=== PATIENT | male | born 1950 | race Caucasian/White ===

== ENCOUNTER 2016-07-10 14:20 | Emergency (ER) ==
[2016-07-10 14:27] VITALS: BP 169/77; TEMP 99.2; BMI 24.3
--- NOTE | 2016-07-10 15:24 | CT ---
EXAM: CT soft tissue neck without contrast HISTORY: Swallowed popcicle stick. COMPARISON: None TECHNIQUE: Serial axial images of the soft tissues of the neck were performed without contrast. Th yesika were reviewed in multiple planes. FINDINGS: Intracranial contents demonstrate a moderate generalized volume loss. Paranasal sinuses a re clear. The mastoid air cells are clear. The thyroid is normal. The orbital globes and retrobulb ar structures are normal. There are scattered abnormal lymph nodes. The thyroid is normal. The as cending aorta measures upper limit of normal at 4 cm in diameter. There is apical emphysematous dis ease of the lungs. There is a round tubular structure in the posterior esophagus measuring approximately 6 cm in length . At the distal aspect of this tubular structure, there is a increased density around structure melyssa suring 1.3 cm in diameter. IMPRESSION: 1. Tubular structure with a distal lobular area of increased attenuation in the esophagus in the re gion of the aortic arch likely represents ingested foreign body. 2. Ascending aorta is mildly enlarged with emphysematous disease. 3. Moderate generalized volume loss of the intracranial contents.
--- NOTE | 2016-07-10 16:05 | ED.PDOC ---
General ED Provider: Dr. CAT WILDER Chief Complaint: Non-specific Complaint Stated Complaint: f/b ingestion Time Seen by Physician: 14:23 Mode of Arrival: Ambulance Information Source: Patient Exam Limitations: No limitations Primary Care Provider: MARIBELL ARRIAGA Nursing and Triage Documentation Reviewed and Agree: Yes GI Complaint Exam - Vomiting/Diarrhea Complaint/Exam Onset/Duration: f/b in the forearm of a popcile stick Symptoms Are: Still present Episodes of Vomiting over last 24 Hours: 0 Initial Severity: Mild Current Severity: Mild Aggravating: Reports: None Alleviating: Reports: None Associated Signs and Symptoms: Denies: Dizziness, Light-headedness, Melena, Hematemesis, Fever, Abdominal pain, Cramping Review of Systems - Review Of Systems Constitutional: Reports: No symptoms Eyes: Reports: No symptoms Ears, Nose, Mouth, Throat: Reports: No symptoms Respiratory: Reports: No symptoms Cardiac: Reports: No symptoms GI: Reports: No symptoms : Reports: No symptoms Musculoskeletal: Reports: No symptoms Skin: Reports: No symptoms Neurological: Reports: No symptoms Endocrine: Reports: No symptoms Hematologic/Lymphatic: Reports: No symptoms All Other Systems: Reviewed and Negative Past Medical History - Past Medical History Previously Healthy: Yes Endocrine: Reports: None Cardiovascular: Reports: None Respiratory: Reports: None Hematological: Reports: None Gastrointestinal: Reports: None Genitourinary: Reports: None Neuro/Psych: Reports: None Musculoskeletal: Reports: None Cancer: Reports: None - Surgical History General Surgical History: Reports: None - Family History Family History: Reports: None - Social History Smoking Status: Current every day smoker Hx Substance Use: No Alcohol Screening: None Physical Exam - Physical Exam Appearance: Well-appearing, No pain distress, Well-nourished Eyes: NOAM, EOMI, Conjunctiva clear ENT: Ears normal, Nose normal, Oropharynx normal Respiratory: Airway patent, Breath sounds clear, Breath sounds equal, Respirations nonlabored Cardiovascular: RRR, Pulses normal, No rub, No murmur GI/: Soft, Nontender, No masses, Bowel sounds normal, No Organomegaly Musculoskeletal: Normal strength, ROM intact, No edema, No calf tenderness Skin: Warm, Dry, Normal color Neurological: Sensation intact, Motor intact, Reflexes intact, Cranial nerves intact, Alert, Oriented Psychiatric: Affect appropriate, Mood appropriate Critical Care Note - Critical Care Note Total Time (mins): 0 Course - Course Orders, Labs, Meds: Orders Category Date Time Status CT SOFT TISSUE NECK W/O CONTR Stat RADS 07/10/16 14:44 Ordered Vital Signs: Temp Pulse Resp BP Pulse Ox 07/10/16 14:21 99.2 F 51 L 16 169/77 H 98 Departure - Departure Time of Disposition: 16:04 (transfered jewish) Disposition: TSF SHORT-TRM HOSP Discharge Problem: Foreign body in esophagus Qualifiers: Encounter type: initial encounter Qualifier Code: (T18.108A) Unspecified foreign body in esophagus causing other injury, initial encounter Instructions: Foreign Body Ingestion (ED) Condition: Good Pt referred to PMD for follow-up: Yes Additional Instructions: Please call your Family Physician as soon as possible to schedule a follow-up appointment.
== END 2016-07-10 16:30 | disposition short-term general hospital (02) ==
LOC: ED 14:20
DX: T18.108A Unspecified foreign body in esophagus causing other injury, initial encounter (principal); F17.210 Nicotine dependence, cigarettes, uncomplicated
CPT/HCPCS: 99285

== ENCOUNTER 2016-10-08 09:53 | Outpatient (CLI) | END 2016-10-08 09:54 | LOC: AMBL 09:53 | PROVIDERS: ATTEND Emergency Medicine | DX: R00.1 Bradycardia, unspecified (principal); R55 Syncope and collapse; G80.9 Cerebral palsy, unspecified; F03.90 Unspecified dementia, unspecified severity, without behavioral disturbance, psychotic disturbance, mood disturbance, and anxiety ==

== ENCOUNTER 2017-05-13 15:18 | Outpatient (CLI) | END 2017-05-13 15:19 | disposition short-term general hospital (02) | LOC: AMBL 15:18 | PROVIDERS: ATTEND Internal Medicine | DX: R31.9 Hematuria, unspecified (principal); I95.9 Hypotension, unspecified; Z86.73 Personal history of transient ischemic attack (TIA), and cerebral infarction without residual deficits ==

== ENCOUNTER 2017-06-14 16:40 | Outpatient (CLI) | payer OTHER | END 2017-06-14 16:41 | disposition short-term general hospital (02) | LOC: AMBL 16:40 | PROVIDERS: ATTEND Emergency Medicine | DX: N48.89 Other specified disorders of penis (principal) ==

== ENCOUNTER 2017-06-18 21:40 | Outpatient (CLI) | END 2017-06-18 21:41 | disposition short-term general hospital (02) | LOC: AMBL 21:40 | PROVIDERS: ATTEND Internal Medicine Geriatric Medicine | DX: R50.9 Fever, unspecified (principal); R31.9 Hematuria, unspecified; R40.2411 Glasgow coma scale score 13-15, in the field [EMT or ambulance]; G80.9 Cerebral palsy, unspecified; M62.462 Contracture of muscle, left lower leg; M62.461 Contracture of muscle, right lower leg; Z98.890 Other specified postprocedural states; Z96.0 Presence of urogenital implants ==

== ENCOUNTER 2017-06-24 11:39 | Outpatient (CLI) | END 2017-06-24 11:40 | disposition short-term general hospital (02) | LOC: AMBL 11:39 | PROVIDERS: ATTEND Family Medicine | DX: R00.1 Bradycardia, unspecified (principal) ==

== ENCOUNTER 2017-07-15 12:45 | Outpatient (CLI) | END 2017-07-15 13:01 | disposition short-term general hospital (02) | LOC: AMBL 12:45 | PROVIDERS: ATTEND Family Medicine | DX: R40.4 Transient alteration of awareness (principal); R31.9 Hematuria, unspecified; Z96.0 Presence of urogenital implants; G80.9 Cerebral palsy, unspecified; F03.90 Unspecified dementia, unspecified severity, without behavioral disturbance, psychotic disturbance, mood disturbance, and anxiety ==

== ENCOUNTER 2017-10-15 12:51 | Inpatient (IN) | payer OTHER ==
--- NOTE | 2017-10-15 13:31 | ED.PDOC ---
General ED Provider: Dr. BRITNI ROSE Chief Complaint: Altered Mental Status Stated Complaint: Patient arrives to hospital by ambulance after [place] reported patient had a near syncopal episode at lunch. The RN there stated his Blood Pressure there of 74/42 and blood glucose of 438. Reportably no history of diabetes. EMS reports that his BP upon there arrival was 140/82. Patient has slightly altered mental status, compared to baseline.Patient also has a kc cath in place, with a history of UTI's and cloudy urine present in bag. Time Seen by Physician: 13:25 Mode of Arrival: Ambulance Information Source: Snf, EMT Exam Limitations: Clinical condition, Altered mental status Primary Care Provider: RADHA LICEA Referred to ED by: PCP Nursing and Triage Documentation Reviewed and Agree: Yes Does patient meet sepsis criteria?: No System Inflammatory Response Syndrome: Not Applicable Sepsis Protocol: For patient's 13 years and over: Temp is 96.8 and below OR 101 and greater Pulse >90 BPM Resp >20/minute Acutely Altered Mental Status Are patient's symptoms suggestive of a new infection, such as: -Pneumonia -Skin, Soft Tissue -Endocarditis -UTI -Bone, Joint Infection -Implantable Device -Acute Abdominal Infection -Wound Infection -Meningitis -Blood Stream Catheter Infection -Unknown Neurological Complaint Exam - Altered Mental Status Complaint/Exam Current Mental Status: Confusion, Other (less responsiveness and garbled speech) Onset: Gradual Duration: Today Symptoms Are: Still present Timing: Intermittent Episodes Lasting: Minutes Initial Severity: Severe Current Severity: Mild Eye Deviation Present: No Character: Reports: Responsiveness. Denies: Confusion, Agitation, Lethargy Aggravating: Reports: None Alleviating: Reports: Oxygen (and IV fluids) Associated Signs and Symptoms: Reports: Dizziness, Weakness Related History: Denies: Similar episode Cardiac Risk Factors: Reports: None, Hypertension CVA Risk Factors: Reports: None, Hypertension, CAD Carotid Bruit Present: No Nystagmus Present: No Gag Reflex Present: Yes Meningeal Signs Positive: No Focal Weakness: Present: None Focal Sensory Loss: Present: None Gait: Unable Signs of Injury: Present: Normal findings Thrombolytics Considered: No Differential Diagnoses: Metabolic Disorder, TIA Review of Systems - Review Of Systems Constitutional: Reports: No symptoms Eyes: Reports: No symptoms Ears, Nose, Mouth, Throat: Reports: No symptoms Respiratory: Reports: No symptoms Cardiac: Reports: No symptoms GI: Reports: No symptoms : Reports: No symptoms Musculoskeletal: Reports: No symptoms Skin: Reports: No symptoms Neurological: Reports: No symptoms Endocrine: Reports: No symptoms Hematologic/Lymphatic: Reports: No symptoms All Other Systems: Reviewed and Negative Past Medical History - Past Medical History Previously Healthy: Yes Endocrine: Reports: None Cardiovascular: Reports: None Respiratory: Reports: None Hematological: Reports: None Gastrointestinal: Reports: None Genitourinary: Reports: None Neuro/Psych: Reports: None Musculoskeletal: Reports: None Cancer: Reports: None - Surgical History General Surgical History: Reports: None - Family History Family History: Reports: None - Social History Smoking Status: Current every day smoker, Heavy tobacco smoker Hx Substance Use: No Alcohol Screening: None - Immunizations Tetanus Shot up to Date: Yes Physical Exam - Physical Exam Appearance: Ill-appearing, No pain distress, Well-nourished Ill-appearing: Mild Pain Distress: None Eyes: NOAM, EOMI, Conjunctiva clear ENT: Ears normal, Nose normal, Oropharynx normal, Dry mucosa Respiratory: Airway patent, Breath sounds clear, Breath sounds equal, Respirations nonlabored Cardiovascular: RRR, Pulses normal, No rub, No murmur GI/: Soft, Nontender, No masses, Bowel sounds normal, No Organomegaly Musculoskeletal: Normal strength, ROM intact, No edema, No calf tenderness Skin: Warm, Dry, Normal color Neurological: Sensation intact, Motor intact, Reflexes intact, Cranial nerves intact, Alert (After IV fluid bolus patient became talkative and denied complaints other that against the long-term-), Oriented Psychiatric: Affect appropriate, Mood appropriate Course - Course Hematology/Chemistry: 10/16/17 04:30 10/16/17 04:30 Orders, Labs, Meds: Lab Review 10/15/17 10/15/17 10/15/17 13:33 14:00 14:00 WBC 11.07 H RBC 4.35 L Hgb 12.8 L Hct 39.7 L MCV 91.3 MCH 29.4 MCHC 32.2 RDW Coeff of Carlita 15.1 H Plt Count 102 L Immature Gran % (Auto) 0.5 Neut % (Auto) 81.9 Lymph % (Auto) 8.2 L [place] % (Auto) 8.3 Eos % (Auto) 0.7 Baso % (Auto) 0.4 Immature Gran # (Auto) 0.1 Neut # (Auto) 9.1 H Lymph # (Auto) 0.9 [place] # (Auto) 0.9 Eos # (Auto) 0.1 Baso # (Auto) 0.0 ESR 18 H Sodium 144 Potassium 3.9 Chloride 112 H Carbon Dioxide 23 Anion Gap 12.9 BUN 23 H Creatinine 1.15 H Estimated GFR (MDRD) 63.00 BUN/Creatinine Ratio 20.00 Glucose 124 H Hemoglobin A1c Calcium 8.5 Total Bilirubin 1.4 H AST 29 ALT 34 Alkaline Phosphatase 72 Troponin I 0.0130 Total Protein 6.2 Albumin 2.7 L Globulin 3.5 Albumin/Globulin Ratio 0.77 Urine Color Yellow Urine Clarity Cloudy Urine pH 6.0 Ur Specific [place] 1.015 Urine Protein 2+ Urine Glucose (UA) Negative Urine Ketones Negative Urine Blood 2+ Urine Nitrite Positive Urine Bilirubin Negative Urine Urobilinogen 1.0 Ur Leukocyte Esterase 3+ Urine Microscopic RBC Tntc Urine Microscopic WBC Tntc Ur Squamous Epith Cells Not present Urine Bacteria 2+ 10/15/17 14:00 WBC RBC Hgb Hct MCV MCH MCHC RDW Coeff of Carlita Plt Count Immature Gran % (Auto) Neut % (Auto) Lymph % (Auto) [place] % (Auto) Eos % (Auto) Baso % (Auto) Immature Gran # (Auto) Neut # (Auto) Lymph # (Auto) [place] # (Auto) Eos # (Auto) Baso # (Auto) ESR Sodium Potassium Chloride Carbon Dioxide Anion Gap BUN Creatinine Estimated GFR (MDRD) BUN/Creatinine Ratio Glucose Hemoglobin A1c 4.6 L Calcium Total Bilirubin AST ALT Alkaline Phosphatase Troponin I Total Protein Albumin Globulin Albumin/Globulin Ratio Urine Color Urine Clarity Urine pH Ur Specific [place] Urine Protein Urine Glucose (UA) Urine Ketones Urine Blood Urine Nitrite Urine Bilirubin Urine Urobilinogen Ur Leukocyte Esterase Urine Microscopic RBC Urine Microscopic WBC Ur Squamous Epith Cells Urine Bacteria Orders Category Date Time Status EKG-(ED ONLY) Stat CARDIO 10/15/17 13:39 Completed IV [ED IV/MEDIPORT/POWERPORT] .ONCE EMERGENCY 10/15/17 13:39 Active BLOOD CULTURE (ED ONLY) Stat LAB 10/15/17 14:00 Received CBC W/ AUTO DIFF Stat LAB 10/15/17 14:00 Completed CMP [COMPREHENSIVE METABOLIC PANEL] Stat LAB 10/15/17 14:00 Completed ESR Stat LAB 10/15/17 14:00 Completed TROPONIN I Stat LAB 10/15/17 14:00 Completed UA [URINALYSIS C & S IF INDICATED] Stat LAB 10/15/17 13:33 Completed URINE CULTURE Stat LAB 10/15/17 13:33 Results 0.9 % Sodium Chloride [Saline Flush] MEDS 10/15/17 13:38 Active 1 syr IVF PRN PRN Sodium Chloride 0.9% [Sodium Chloride] 1,000 ml MEDS 10/15/17 13:40 Discontinued IV BOLUS Sodium Chloride 0.9% [Sodium Chloride] 1,000 ml MEDS 10/15/17 13:40 Discontinued IV BOLUS CHEST, 1V AP ONLY Stat RADS 10/15/17 13:39 Completed Medications Generic Name Dose Route Start Last Admin Trade Name Freq PRN Reason Stop Dose Admin Acetaminophen 650 mg 10/15/17 19:32 Tylenol PO Q4H PRN Mild Pain Amiodarone HCl 200 mg 10/15/17 21:00 10/16/17 09:24 Cordarone PO 200 mg BID KWESI Administration Ascorbic Acid 500 mg 10/16/17 09:00 10/16/17 09:24 Vitamin C PO 500 mg BID KWESI Administration Gabapentin 300 mg 10/15/17 21:00 10/15/17 21:03 Neurontin PO 300 mg BEDTIME KWESI Administration Sodium Chloride 1,000 mls @ 75 mls/hr 10/15/17 20:00 10/16/17 01:34 Sodium Chloride IV 75 mls/hr .[id number] KWESI Administration Piperacillin Sod/Tazobactam 50 mls @ 50 mls/hr 10/16/17 08:30 10/16/17 09:24 Sod 3.375 gm/ Sodium Chloride IV 50 mls/hr Q6HR KWESI Administration Multivitamins 1 tab 10/16/17 09:00 10/16/17 09:23 Multivitamin Tablet PO 1 tab DAILY KWESI Administration Nitroglycerin 0.4 mg 10/15/17 19:29 Nitrostat SL Q5MIN X 3 DOSES PRN Chest Pain Non-Formulary Medication 1 each 10/16/17 09:00 10/16/17 09:25 Arginine/Ascorbate Sod/Christa Ac [Arginaid Powder] PO Not Given BID KWESI Potassium Chloride 10 meq 10/16/17 08:00 10/16/17 09:23 Micro-K Cap PO 10 meq BIDWM KWESI Administration Rivaroxaban 20 mg 10/16/17 09:00 10/16/17 09:25 Xarelto PO 20 mg DAILY KWESI Administration Saccharomyces Boulardii 250 mg 10/15/17 21:00 10/16/17 09:24 Florastor PO 250 mg BID KWESI Administration Sennosides 8.6 mg 10/15/17 21:00 10/16/17 09:23 Senna PO 8.6 mg BID KWESI Administration Sodium Chloride 1 syr 10/15/17 13:38 Saline Flush IVF PRN PRN To flush IV Discontinued Medications Generic Name Dose Route Start Last Admin Trade Name Freq PRN Reason Stop Dose Admin Sodium Chloride 1,000 mls @ 1,000 mls/hr 10/15/17 13:40 10/15/17 13:49 Sodium Chloride IV 10/15/17 14:39 1,000 mls/hr BOLUS STA Administration Sodium Chloride 1,000 mls @ 150 mls/hr 10/15/17 13:40 10/15/17 13:49 Sodium Chloride IV 10/15/17 20:19 150 mls/hr BOLUS STA Administration Levofloxacin/Dextrose 500 mg/ 100 mls @ 100 mls/hr 10/15/17 16:00 10/15/17 16 :01 Dextrose IV 100 mls/hr DAILY KWESI Administration Non-Formulary Medication 1 each 10/15/17 21:00 10/15/17 21:02 Arginine/Ascorbate Sod/Christa Ac [Arginaid Powder] PO Not Given BID [facility] Non-Formulary Medication 500 mg 10/15/17 21:00 10/15/17 21:03 Ascorbate Calcium [Vitamin C] PO Not Given BID [facility] Vital Signs: Temp Pulse Resp BP Pulse Ox 10/15/17 12:52 98.4 F 53 L 13 116/68 96 Departure - Departure Time of Disposition: 15:30 Disposition: ADMITTED INPATIENT Discharge Problem: Acute UTI, Dehydration, moderate Condition: Fair Pt referred to PMD for follow-up: Yes (Dr Zimmerman) MP verified?: No Allergies/Adverse Reactions: Allergies No Known Allergies Allergy (Unverified 10/15/17 13:02) Home Medications: Ambulatory Orders Acetaminophen [Pain & Fever] 650 mg PO Q4HR PRN 10/15/17 Albuterol Sulfate [Proventil Hfa] 6.7 gm IH Q6HR PRN 10/15/17 Amiodarone HCl [Pacerone] 200 mg PO BID 10/15/17 Arginine/Ascorbate Sod/Christa AC [Arginaid Powder] 1 each PO BID 10/15/17 Ascorbate Calcium [Vitamin C] 500 mg PO BID 10/15/17 Benzonatate [Tessalon Perles] 200 mg PO Q8HR PRN 10/15/17 Gabapentin [Neurontin] 300 mg PO BEDTIME 10/15/17 Ipratropium/Albuterol Neb [Duoneb] 1 vial NEB RTQ6H PRN 10/15/17 Lisinopril [Zestril] 5 mg PO BID 10/15/17 Loperamide HCl [Imodium A-D] 2 mg PO Q4HR PRN 10/15/17 Multivitamin 1 cap PO DAILY 10/15/17 Nitroglycerin [Nitrostat] 0.4 mg SL Q5MIN X 3 DOSES PRN 10/15/17 Ondansetron HCl [Zofran] 4 mg PO Q8HR PRN 10/15/17 Potassium Chloride 10 meq PO BIDWM 10/15/17 Rivaroxaban [Xarelto] 20 mg PO DAILY 10/15/17 Saccharomyces Boulardii [Florastor] 250 mg PO BID 10/15/17 Sennosides [Senna] 8.6 mg PO BID 10/15/17 Terazosin HCl 5 mg PO DAILY 10/15/17 Disposition Discussed With: Patient
[2017-10-15] MEDS ORDERED: SODIUM CHLORIDE 1,000 ML IV STA ×2 (13:40)
--- NOTE | 2017-10-15 14:32 | DI ---
EXAM: Single frontal view of the chest HISTORY: Cough. COMPARISON: none FINDINGS: Cardiomediastinal silhouette is unremarkable. There is no pneumothorax or pleural effusion . There is no consolidation, nodule or mass. The osseous structures are unremarkable. IMPRESSION: No acute cardiopulmonary process.
[2017-10-15] MEDS ORDERED: LEVAQUIN 500 MG in PREMIX 100 ML D5W 1 BAG IV SCH (16:00)
[2017-10-15] MEDS ORDERED: LEVAQUIN 100 ML IV ONE (16:21)
[2017-10-15 17:05] VITALS: BMI 20.9
[2017-10-15] MEDS ORDERED: NITROSTAT SL PRN (19:29)
[2017-10-15] MEDS ORDERED: TYLENOL PO PRN (19:32)
[2017-10-15] MEDS ORDERED: VITAMIN C ONE (20:04)
[2017-10-15] MEDS ORDERED: ARGININE PO SCH (21:00)
[2017-10-15] MEDS ORDERED: ASCORBATE SOD PO SCH (21:00)
[2017-10-15] MEDS ORDERED: VITE AC PO SCH (21:00)
[2017-10-15] MEDS ORDERED: NON-FORMULARY MEDICATION (Ascorbate Calcium [Vitamin C] 500 MG) PO SCH (21:00)
[2017-10-15] MEDS: CORDARONE PO SCH (21:02)
[2017-10-15] MEDS: SENNA PO SCH (21:03)
[2017-10-15] MEDS: NEURONTIN PO SCH (21:03)
[2017-10-15] MEDS: FLORASTOR PO SCH (21:04)
[2017-10-15] MEDS: SODIUM CHLORIDE 1,000 ML IV SCH (21:21)
--- NOTE | 2017-10-15 21:29 | CT ---
EXAM: CT brain without contrast HISTORY: Altered mental status TECHNIQUE: CT of the brain without intravenous contrast FINDINGS: There is no acute hemorrhage midline shift or mass effect. No hydrocephalus or abnormal e xtra-axial fluid collection. Generalized involutional atrophy, severe. Chronic microvascular change s of the white matter tracts, mild. No acute large vessel territorial infarct is seen. The bony aircraft maintenance director nium appears normal. The visualized paranasal sinuses are clear. Soft tissues without significant abn ormality. IMPRESSION: 1. Chronic changes as described. No acute intracranial abnormality is seen.
--- NOTE | 2017-10-15 21:37 | CT ---
Exam: CT of the abdomen and pelvis without contrast History: Lower abdomen pain Technique: [address] of the abdomen and pelvis without intravascular contrast FINDINGS: The lung bases are clear. No significant liver abnormality. The adrenals, pancreas and sp edelmira are unremarkable. The stomach and hiatus are unremarkable.Nonvisualization of the gallbladder. Bilateral nonobstructing nephrolithiasis. Large calculus on the right measures 8 mm. Left hydroneph rosis and hydroureter with periureteral stranding. There are calcifications in the urinary bladder a s well as urinary bladder wall thickening and perivesicular stranding. No ureterolithiasis is seen. The appendix is normal. Mild gas and fluid and the small intestine and colon without obstructive pa ttern. Large stool retention of the rectum and sigmoid. Nondistended urinary bladder with possible perivesi cular stranding and urinary bladder wall thickening. Calcifications within the bladder lumen or blad arpita wall. Skeletal hyperdensities noted within the pelvis. Chronic wedge deformity. Impression: 1. Mild left hydronephrosis and hydroureter. No ureterolithiasis is seen. Correlate for passed chay culus versus other etiology of obstruction. Multiple bladder calculi are present. 2. Large rectal and sigmoid colonic stool retention. Correlate for fecal impaction. 3. Right osteo sclerotic area may represent metastasis. 4. Bilateral nonobstructing nephrolithiasis
[2017-10-16] MEDS: SODIUM CHLORIDE 1,000 ML IV SCH ×2 (01:34→15:24)
[2017-10-16] MEDS ORDERED: NON-FORMULARY MEDICATION (Potassium Chloride [Potassium Chloride] 10 MEQ) PO SCH (08:00)
[2017-10-16] MEDS ORDERED: NON-FORMULARY MEDICATION (Rivaroxaban [Xarelto] 20 MG) PO SCH (09:00)
[2017-10-16] MEDS ORDERED: NON-FORMULARY MEDICATION (Multivitamin 1 CAP) PO SCH (09:00)
[2017-10-16] MEDS: MICRO-K CAP PO SCH ×2 (09:23→17:28)
[2017-10-16] MEDS: SENNA PO SCH ×2 (09:23→20:22)
[2017-10-16] MEDS: MULTIVITAMIN TABLET PO SCH (09:23)
[2017-10-16] MEDS: FLORASTOR PO SCH ×2 (09:24→20:22)
[2017-10-16] MEDS: ZOSYN 3.375 GM 3.375 GM in SODIUM CHLORIDE 50 ML IV SCH ×4 (09:24→23:12)
[2017-10-16] MEDS: VITAMIN C PO SCH ×2 (09:24→20:22)
[2017-10-16] MEDS: CORDARONE PO SCH ×2 (09:24→20:22)
[2017-10-16] MEDS: VITE AC PO SCH ×2 (09:25→20:21)
[2017-10-16] MEDS: ARGININE PO SCH ×2 (09:25→20:21)
[2017-10-16] MEDS: XARELTO PO SCH (09:25)
[2017-10-16] MEDS: ASCORBATE SOD PO SCH ×2 (09:25→20:21)
--- NOTE | 2017-10-16 10:43 | HP ---
DATE OF SERVICE: 10/15/17 CHIEF COMPLAINT: Hypotension and altered mental status. HISTORY OF PRESENT ILLNESS: This is a 67 year old male, senior care resident. The patient had a near syncopal episode with the last stated pressure of 74. Blood sugar was 438, no history of diabetes. Pressure upon EMS 145/82. Altered mental status compared to recent. He has Barnes Catheter. History of UTI and cloudy urine present. History of cerebral palsy, wheelchair bound came to the emergency room and seen by Dr. Myrick. WBC was 11,000 with left shift, BUN 23, creatinine 1.15. Urine is cloudy with 3+ Leukocyte esterase, nitrates positive, 2+ blood, bacteria 2+. At that time the patient was admitted to the hospital for the acute renal failure, change in mental status from urinary tract infection for IV fluids and antibiotics. REVIEW OF SYSTEMS: CONSTITUTIONAL: No fever, no chills. Weakness. Tiredness. Low blood pressure, Elevated blood sugar. HEENT: Normal. ENDOCRINE: No weight gain; no weight loss. CVS: No chest pain. No PND, no orthopnea. No shortness of breath. No PND, no orthopnea. RESPIRATORY: No cough, no congestion. No hemoptysis. GI: No nausea, no vomiting. No abdominal pain. No melena. : No hematuria. No polyuria. MUSCULOSKELETAL: No joint swelling. Wheel chair bound. PSYCHIATRIC: Not anxious. No depression. No suicidal thoughts. No homicidal thoughts. SKIN: Intact, no open lesions. PAST MEDICAL HISTORY: CHF Coronary artery disease COPD GERD Cerebral Palsy, wheelchair bound Atrial fibrillation PAST SURGICAL HISTORY: Kidney stone removed PERSONAL HISTORY: The does not drink. Current everyday heavy smoker FAMILY HISTORY: Heart problem MEDICATIONS: Senna Vitamin C Nitrostat Imodium Tessalon Perles Tylenol Florastor DUO NEB Terazosin Xarelto Potassium Zofran Lisinopril Neurontin Amiodarone Albuterol Arginaid ALLERGIES: No known allergies PHYSICAL EXAMINATION: V/S: Blood pressure 116/63, respiratory rate 18, heart rate 53, temperature 98.4 with saturation 96%. GENERAL: Sick looking man lying in the bed. HEENT: Atraumatic, normocephalic. No scleral icterus. Pallor positive. Mucosa dry. NECK: Supple. No JVD, no bruit. No lymphadenopathy. No thyromegaly. HEART: S1, S2 normal. No murmur. No cyanosis or clubbing. No ascites. LUNGS: Clear to auscultation. No rales or rhonchi. ABDOMEN: Soft, nontender. Suprapubic discomfort present. Bowel sounds are active. No CVA tenderness. No rigidity or guarding. EXTREMITIES: No pedal edema. No cyanosis or clubbing MUSCULOSKELETAL: Normal joints, no swelling. Contractors to the lower extremity and upper extremity. NEUROLOGIC: The patient is awake and alert. SKIN: Intact; no open lesions. LYMPHATIC: No lymph nodes palpable. LABS: WBC 11.07, hgb 12.8, hct 39.7, plt count 102, sodium 140, potassium 3.9, chloride 112, bicarb 23, BUN 23, creatinine 1.15 and glucose 154. ASSESSMENT: 1. Urinary tract infection 2. Dehydration 3. CAD 4. CHF 5. Atrial fibrillation 6. Hypertension 7. Cerebral palsy. PLAN: 1. Admit the patient to the regular floor 2. CBC and CMP today and daily 3. Cardiac enzymes and Troponin 4. IV fluids 5. Levaquin 6. Continue the rest of the home medications 7. Accu-checks with coverage. TIME SPENT: MORE THAN 75 minutes MTDD
[2017-10-16] MEDS: NEURONTIN PO SCH (20:22)
[2017-10-17] MEDS ORDERED: TORADOL IVP STA (02:43)
[2017-10-17] MEDS: ZOSYN 3.375 GM 3.375 GM in SODIUM CHLORIDE 50 ML IV SCH ×3 (06:01→18:17)
[2017-10-17] MEDS: SODIUM CHLORIDE 1,000 ML IV SCH (06:04)
[2017-10-17] MEDS: ARGININE PO SCH ×2 (10:12→20:11)
[2017-10-17] MEDS: VITE AC PO SCH ×2 (10:12→20:11)
[2017-10-17] MEDS: ASCORBATE SOD PO SCH ×2 (10:12→20:11)
[2017-10-17] MEDS: CORDARONE PO SCH ×2 (12:40→20:16)
[2017-10-17] MEDS: SENNA PO SCH ×2 (12:40→20:16)
[2017-10-17] MEDS: MICRO-K CAP PO SCH ×2 (12:40→18:17)
[2017-10-17] MEDS: FLORASTOR PO SCH ×2 (12:41→20:17)
[2017-10-17] MEDS: VITAMIN C PO SCH ×2 (12:41→20:16)
[2017-10-17] MEDS: MULTIVITAMIN TABLET PO SCH (12:41)
[2017-10-17] MEDS: XARELTO PO SCH (12:41)
--- NOTE | 2017-10-17 13:33 | CT ---
EXAM: CT chest with contrast. HISTORY: Abnormal abdominal CT. Possible metastatic disease. COMPARISON: Abdominal CT 10/15/2017. TECHNIQUE: Multiple axial images of the chest were obtained following intravenous administration of 75 mL of Omnipaque-300, low osmolar. Images were reformatted in the sagittal and coronal planes. FINDINGS: A left hilar lymph node measures 1.1 cm short axis on axial image 23. Nonenlarged mediast inal, right hilar or axillary lymph nodes are present. Heart size is normal. There is a small amoun t of pericardial fluid. Atherosclerotic calcifications are present. Small bilateral pleural effusions are present with dependent subsegmental atelectasis in both lungs. The lungs are otherwise grossly clear, although respiratory motion significantly limits evaluation. No pneumothorax identified. The esophagus appears to demonstrate mild wall thickening in the mid to distal portion. Visualized g astric wall also appears thickened. Right nephrolithiasis is present. Mild left hydronephrosis is p artially imaged. Degenerative changes present in the spine. Old appearing compression deformity of L1 noted. It is d ifficult to exclude a tiny sclerotic lesion in the medial right scapula on axial images 15-17. No ot her osseous lesions are identified.. IMPRESSION: 1. Small bilateral pleural effusions and small pericardial effusion. 2. Mild left hilar lymphadenopathy which is nonspecific. 3. Suspect esophagitis and gastritis. 4. Redemonstration of mild left hydronephrosis. 5. Possible small sclerotic lesion of the medial right scapula. Consider bone scan.
--- NOTE | 2017-10-17 14:40 | PN ---
DATE OF SERVICE: 10/16/17 SUBJECTIVE: The patient was admitted with the urinary tract infection and urosepsis with change in mental status and acute renal failure. With the given IV fluids the patient is more awake and alert. REVIEW OF SYSTEMS: CONSTITUTIONAL: No fever, no chills. HEENT: Normal. ENDOCRINE: No weight gain, no weight loss. CVS: No angina symptoms. No CHF symptoms. No palpitations. No atypical chest pain for CAD. No shortness of breath. No PND, no orthopnea. RESPIRATORY: No cough, no hemoptysis. GI: No nausea, no vomiting. No abdominal pain. : No hematuria. No polyuria. MUSCULOSKELETAL: No joint swelling. PSYCHIATRIC: Not anxious. No depression. No suicidal thoughts. No homicidal thoughts. SKIN: Intact. No rash. PHYSICAL EXAMINATION: V/S: Blood pressure 103/60, respiratory rate 18, heart rate 61, temperature 93.7 with saturation 94%. HEENT: Normocephalic, atraumatic. Mucosa dry. Pallor positive. No icterus. NECK: Supple. No JVD, no carotid bruit. No lymphadenopathy. LUNGS: Decreased and basilar crackles. Clear to auscultation. No rales or rhonchi. HEART: S1, S2 normal. No S3. No murmur, gallop or regurgitation. ABDOMEN: Soft, nontender. Bowel sounds active. No rigidity. No rebound or guarding. No CVA tenderness. EXTREMITIES: No cyanosis, clubbing or pedal edema. Contractors in the lower extremities. MUSCULOSKELETAL: No joint swelling. NEUROLOGIC: Awake, alert. No focal deficit. LYMPHATIC: No lymph nodes palpable. SKIN: Intact. LABS: WBC 9.78, hgb 11.1, hct 34.9, plt count 100, Sodium 142, potassium 3.5, chloride 111, bicarb 24, BUN 19, creatinine 0.83 and glucose 79 ASSESSMENT: 1. Urinary tract infection, gram negative rods 2. Status post change in mental status 3. Urosepsis 4. Acute renal failure 5. Cerebral palsy 6. 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 COPD 8. Osteoarthritis 9. DJD spine PLAN: 1. Zosyn 2. Stop the Levaquin 3. IV fluids 4. Followup with blood culture TIME SPENT: More than 35 minutes [facility]
[2017-10-17] MEDS: NEURONTIN PO SCH (20:16)
[2017-10-18] MEDS: ZOSYN 3.375 GM 3.375 GM in SODIUM CHLORIDE 50 ML IV SCH ×3 (00:06→12:50)
[2017-10-18] MEDS: SODIUM CHLORIDE 1,000 ML IV SCH (00:06)
[2017-10-18] MEDS: MULTIVITAMIN TABLET PO SCH (08:26)
[2017-10-18] MEDS: VITAMIN C PO SCH (08:27)
[2017-10-18] MEDS: CORDARONE PO SCH (08:27)
[2017-10-18] MEDS: FLORASTOR PO SCH (08:27)
[2017-10-18] MEDS: MICRO-K CAP PO SCH (08:28)
[2017-10-18] MEDS: SENNA PO SCH (08:28)
[2017-10-18] MEDS: VITE AC PO SCH (08:29)
[2017-10-18] MEDS: ARGININE PO SCH (08:29)
[2017-10-18] MEDS: ASCORBATE SOD PO SCH (08:29)
[2017-10-18] MEDS: XARELTO PO SCH (08:29)
[2017-10-18 10:16] VITALS: BP 126/68; TEMP 98.2
--- NOTE | 2017-10-18 16:17 | PCM.HOSP ---
- Initial Hospital Care [id number] 70 Minutes Bedside ([id number]): 10/15 - Subsequent Care [id number] 35 Minutes per Day ([id number]): 10/16. 10/17 - Hospital Discharge [id number] More than 30 Minutes ([id number]): 10/18
--- NOTE | 2017-10-23 12:40 | PN ---
DATE OF SERVICE: 10/17/17 SUBJECTIVE: The patient is admitted with urinary tract infection, change in mental status, getting IV fluids and feeling some better. No abdominal pain, nausea or vomiting. Urine did grow Citrobacter Freundii. REVIEW OF SYSTEMS: CONSTITUTIONAL: No fever, no chills. HEENT: Normal. ENDOCRINE: No weight gain, no weight loss. CVS: No angina symptoms. No CHF symptoms. No palpitations. No atypical chest pain for CAD. No shortness of breath. No PND, no orthopnea. RESPIRATORY: No cough, no hemoptysis. GI: No nausea, no vomiting. No abdominal pain. : No hematuria. No polyuria. MUSCULOSKELETAL: No joint swelling. PSYCHIATRIC: Not anxious. No depression. No suicidal thoughts. No homicidal thoughts. SKIN: Intact. No rash. PHYSICAL EXAMINATION: V/S: BP 150/65, respiratory rate 20, heart rate 50, temperature 98.5, saturation 97. HEENT: Normocephalic, atraumatic. Mucosa dry. Pallor positive. No icterus. NECK: Supple. No JVD, no carotid bruit. No lymphadenopathy. LUNGS: Decreased breath sounds. Clear to auscultation. No rales or rhonchi. HEART: S1, S2 normal. No S3. No murmur, gallop or regurgitation. ABDOMEN: Soft, nontender. Bowel sounds active. No rigidity. No rebound or guarding. No CVA tenderness. EXTREMITIES: Has contracture. No cyanosis, clubbing or pedal edema. MUSCULOSKELETAL: No joint swelling. NEUROLOGIC: Awake, alert. No focal deficit. LYMPHATIC: No lymph nodes palpable. SKIN: Intact. LABS: White count 7.0, hemoglobin 11.4, hematocrit 35.3, platelet count 99. Sodium 144 , potassium 3.4, chloride 113, bicarb 26, BUN 12, creatinine 0.82, glucose 81. ASSESSMENT: 1. UTI SECONDARY TO CITROBACTER FREUNDII 2. ACUTE RENAL FAILURE 3. DEHYDRATION WHICH HAS IMPROVED 4. HISTORY OF CEREBRAL PALSY 5. ANEMIA 6. HYPERGLYCEMIA BUT A1C 4.6 7. COPD PLAN: 1. Continue Zosyn 2. IV fluids 3. Daily I & O's TIME SPENT: More than 35 minutes MTDD
--- NOTE | 2017-10-25 08:22 | DS ---
DATE OF SERVICE: 10/18/17 FINAL DIAGNOSIS: 1. Acute renal failure 2. Dehydration 3. Status post change in mental status from the urinary tract infection organism Citrobacter Freundii 4. Cerebral Palsy 5. Atrial flutter by history now normal sinus 6. Hypertension 7. CAD 8. CHF 9. TIA 10.Current heavy smoker 11.Atrial fibrillation DISCHARGE INSTRUCTIONS: Discharge the patient back to the assisted. Followup with Dr. Zimmerman as scheduled. The patient will be having a Bone scan on October 18 at 8am. Continue the blood work like CBC, CMP within one week and CBC and CMP every three months. Lipids and TSH every 6months. Vitamin D yearly. Continue the rest of the home medication as per the reconciliation. MEDICATIONS AT DISCHARGE: Tylenol Loperamide Nitrostat for the chest pain PRN Albuterol for wheezing Tessalon for coughing Zofran for nausea Amiodarone Vitamin C Neurontin DUO NEBS Multivitamin Terazosin Senna Florastor Xarelto Potassium chloride NEW PRESCRIPTIONS: Macrodantin 100mg twice a day for 7 days. DIET INSTRUCTIONS: Salt and purred diet ACTIVITY: Can participate in assisted activities Skin breakdown prevention as per the assisted protocol DISEASE SPECIFIC EDUCATION: Urinary tract infection Dehydration Renal failure Been discussed and verbalized understanding HOSPITAL COURSE: Alvaro Kay who is a 67 year old male who has been going to the urologist for the left sided hydronephrosis and balanitis problems, started having some change in mental status, weakness and the blood pressure was low at the facility so the patient was sent to the emergency room for the evaluation. Blood pressure in the emergency room 97 systolic. WBC was 11,000 with left shift. Chemistry acute renal failure; BUN 23, creatinine 1.15, urine was positive for the nitrates and Leukocyte esterase. With the change in mental status and elevated WBC with the left shift the patient was admitted to the hospital and started on the IV fluids and IV antibiotics. Initially Levofloxacin was given a dose and antibiotic was changed to the Zosyn. Urine culture was showing the gram negative rods and the patient is more awake and alert and did not have any problems. Because of the cerebral palsy the patient the patient can not sit by himself so the patient needs help with the ADL's. He was able to start drinking fluids and not have any problems or complications during the hospital stay. BUN and creatinine got better. Hgb 11.9, potassium 3.4 for which 40meq Potassium been given. As the patient been doing good and afebrile. The patient's CAT scan of the belly did show some lesions in the pelvic area for which we did the CAT of the chest to make sure there is no primary tumor going on. CT of the chest was negative. We will evaluate the patient further as outpatient with the bone scan which we did confirm with the assisted staff. As the patient been doing good the patient is being discharged home today. TIME SPENT: MORE THAN 65 MINUTES MTDD
== END 2017-10-18 14:45 | DRG 149 ==
LOC: ED 12:51 → MEDSURG B 15:36
PROVIDERS: ADMIT Emergency Medicine; ATTEND Emergency Medicine
DX: R42 Dizziness and giddiness (principal); N17.9 Acute kidney failure, unspecified; N39.0 Urinary tract infection, site not specified; R53.1 Weakness; R55 Syncope and collapse; R73.9 Hyperglycemia, unspecified; E86.0 Dehydration; G80.9 Cerebral palsy, unspecified; I10 Essential (primary) hypertension; I25.10 Atherosclerotic heart disease of native coronary artery without angina pectoris; I50.9 Heart failure, unspecified; D64.9 Anemia, unspecified; J44.9 Chronic obstructive pulmonary disease, unspecified; M19.90 Unspecified osteoarthritis, unspecified site; M47.9 Spondylosis, unspecified
CPT/HCPCS: 36415; 80053; 81001; 82550; 82553; 82962; 83036; 84484; 85025; 85651; 87040; 87081; 87086; 87186; 93005; 93010; 96361; 96365; 99285

== ENCOUNTER 2017-10-22 08:10 | Outpatient (CLI) ==
--- NOTE | 2017-10-23 14:58 | NM ---
Exam: Bone scintigraphy (whole-body). Total body imaging. Patient unable to straighten legs secondary to being in a wheelchair. Date of exam: 10/22/2017 Radiopharmaceutical: 25.6 mCi Tc-99m HDP i.v. Reason for exam: Abnormal CT chest abdomen pelvis sclerotic lesions FINDINGS: Delayed whole-body scintigrams were obtained. No previous bone scan is available for eliezer martinez. The scintigraphic images were correlated with the following additional imaging studies: CT of the chest performed 10/17/2017 CT abdomen pelvis performed 10/15/2017 CT of the brain performed 10/15/2017. There is increased radiotracer uptake seen in the region of the right orbit/frontal calvarium. Incre ased radiotracer uptake is seen within the sternum. No increased radiotracer uptake is seen in the r ight iliac wing at the site of sclerosis seen on previous CT examination of the abdomen pelvis. Increased radiotracer uptake is seen in the left proximal femur, right knee, and right calcaneus. Image interpretation is limited by positioning. Impression: 1. Limited evaluation secondary to patient's positioning. 2. Focal area of increased radiotracer uptake in the right orbital rim that correlates with CT imagi ng performed on 10/15/2017 with a sclerotic lesion in this location. Further evaluation is recommende d. 3. Increased radiotracer uptake is seen in the superior sternum without discrete lesion seen on CT i maging of the chest performed 10/17/2017. Findings may be degenerative. 4. Increased radiotracer uptake is seen in the proximal left femur. Further evaluation is recommend ed. 5. Increased radiotracer uptake is seen in the right calcaneus and right knee. Further evaluation i s recommended.
== END 2017-10-22 08:11 | disposition home or self-care (01) ==
LOC: RAD 08:10
PROVIDERS: ATTEND Emergency Medicine
DX: R93.5 Abnormal findings on diagnostic imaging of other abdominal regions, including retroperitoneum (principal); R91.8 Other nonspecific abnormal finding of lung field

== ENCOUNTER 2017-10-26 11:22 | Outpatient (CLI) | END 2017-10-26 11:23 | disposition home or self-care (01) | LOC: NONPT 11:22 | PROVIDERS: ATTEND Emergency Medicine | DX: N39.0 Urinary tract infection, site not specified (principal) | CPT/HCPCS: 81001; 87086; 87186 ==

== ENCOUNTER 2018-07-16 06:50 | Outpatient (CLI) | payer OTHER | END 2018-07-16 06:51 | disposition home or self-care (01) | LOC: NONPT 06:50 | PROVIDERS: ATTEND Nurse Practitioner Family | DX: N39.0 Urinary tract infection, site not specified (principal) | CPT/HCPCS: 81001; 87086; 87186 ==

== ENCOUNTER 2019-05-07 17:59 | Inpatient (IN) ==
[2019-05-07] MEDS ORDERED: SODIUM CHLORIDE 1,000 ML IV STA (18:19)
[2019-05-07] MEDS ORDERED: ZOSYN 3.375 GM 3.375 GM in SODIUM CHLORIDE 50 ML IV STA (18:19)
[2019-05-07] MEDS ORDERED: TYLENOL PO STA (18:19)
--- NOTE | 2019-05-07 18:26 | ED.PDOC ---
General ED Provider: Dr. ANTONIA SALINAS MD Chief Complaint: Fever Stated Complaint: mild to mod off and on fever today, NH pt hx right side cva and atrial fib, poor historian Time Seen by Physician: 18:23 Mode of Arrival: Stretcher Information Source: Care Home and EMT Nursing and Triage Documentation Reviewed and Agree: Yes Does patient meet sepsis criteria?: No System Inflammatory Response Syndrome: Not Applicable Sepsis Protocol: For patient's 13 years and over: Temp is 96.8 and below OR 101 and greater Pulse >90 BPM Resp >20/minute Acutely Altered Mental Status Are patient's symptoms suggestive of a new infection, such as: -Pneumonia -Skin, Soft Tissue -Endocarditis -UTI -Bone, Joint Infection -Implantable Device -Acute Abdominal Infection -Wound Infection -Meningitis -Blood Stream Catheter Infection -Unknown Miscellaneous Complaint Exam Febrile Illness/Adult Complaint/Exam Onset/Duration: today Symptoms Are: Still present Current Severity: Moderate Review of Systems Review Of Systems Constitutional: Reports Fever GI: Denies Vomiting Neurological: Reports Weakness (pt debilitated and unable to provide ros) All Other Systems: Other Physical Exam Physical Exam Appearance: Reports Ill-appearing Ill-appearing: Mild Pain Distress: None Eyes: Reports Conjunctiva clear ENT: Reports Dry mucosa Neck: Supple Respiratory: Reports Breath sounds equal Cardiovascular: Reports RRR GI/: Reports Soft Musculoskeletal: Reports Limited ROM Skin: Reports Warm (pressure sore on sacrum and right foot) Psychiatric: Reports Depressed Re-Evaluation Re-Evaluation Additional Comments: care to Dr Vasquez at 19:00 Critical Care Note Critical Care Note Total Time (mins): 0 Course Course Orders, Labs, Meds: Orders Category Date Time Status BLOOD CULTURE Stat LAB 05/07/19 18:24 Received CBC W/ AUTO DIFF Stat LAB 05/07/19 18:15 Received COMPREHENSIVE METABOLIC PANEL Stat LAB 05/07/19 18:15 Received FLU A/B MOLECULAR Stat LAB 05/07/19 18:20 Received LACTIC ACID Stat LAB 05/07/19 18:30 Received URINALYSIS C & S IF INDICATED Stat LAB 05/07/19 18:15 Received Acetaminophen [Tylenol] MEDS 05/07/19 18:19 Discontinued 650 mg PO ONCE STA Piperacillin Sodium/Tazobactam [Zosyn 3.375 gm] 3.375 MEDS 05/07/19 18:19 Active gm 0.9 % Sodium Chloride [Sodium Chloride] 50 ml IV ONCE Sodium Chloride 0.9% [Sodium Chloride] 1,000 ml MEDS 05/07/19 18:19 Active IV BOLUS CHEST, 1V AP ONLY Stat RADS 05/07/19 18:19 Completed Medications Generic Name Dose Route Start Last Admin Trade Name Freq PRN Reason Stop Dose Admin Sodium Chloride 1,000 mls @ 1,000 mls/hr 05/07/19 18:19 05/07/19 18:55 Sodium Chloride IV 05/07/19 19:18 1,000 mls/hr BOLUS STA Administration Piperacillin Sod/Tazobactam 50 mls @ 50 mls/hr 05/07/19 18:19 Sod 3.375 gm/ Sodium Chloride IV 05/07/19 19:18 ONCE STA Discontinued Medications Generic Name Dose Route Start Last Admin Trade Name Freq PRN Reason Stop Dose Admin Acetaminophen 650 mg 05/07/19 18:19 Tylenol PO 05/07/19 18:20 ONCE STA Vital Signs: Temp Pulse Resp BP Pulse Ox 05/07/19 18:01 102.8 F H 101 H 22 160/62 H 94 L Discharge Plan Discharge Prescriptions: No Action multivitamin [Multiple Vitamins] Tablet 1 tab PO DAILY RF: 0 acetaminophen 325 mg Tablet 650 mg PO ONCE PRN (Reason: Fever Or Pain) RF: 0 ipratropium-albuterol 0.5 mg-3 mg(2.5 mg base)/3 mL Solution For Nebulization 3 ml INHALATION Q4H PRN (Reason: Wheezing) RF: 0 atorvastatin 10 mg Tablet 10 mg PO QPM RF: 0 amiodarone 200 mg Tablet 200 mg PO DAILY RF: 0 ondansetron HCl 4 mg Tablet 4 mg PO Q8H PRN (Reason: Nausea And Vomiting) RF: 0 sennosides-docusate sodium [Senokot-S] 8.6-50 mg Tablet 1 tab-cap PO BID RF: 0 loperamide 2 mg Tablet 2 mg PO Q6H PRN (Reason: Diarrhea) RF: 0 potassium chloride 10 mEq Tablet Extended Release 10 meq PO BID RF: 0 baclofen 20 mg Tablet 20 mg PO TID PRN (Reason: Muscle Spasm) RF: 0 magnesium hydroxide [Milk of Magnesia] 400 mg/5 mL Suspension 30 ml PO BEDTIME PRN (Reason: Constipation) RF: 0 ascorbic acid (vitamin C) [Vitamin C] 500 mg Tablet 500 mg PO DAILY RF: 0 tamsulosin 0.4 mg Capsule 0.4 mg PO BEDTIME RF: 0 benzonatate [Tessalon Perles] 100 mg Capsule 100 mg PO TID PRN (Reason: Cough) RF: 0 venlafaxine 37.5 mg Tablet 37.5 mg PO TID RF: 0 nitroglycerin 0.4 mg Tablet, Sublingual 0.4 mg SUBLINGUAL Q5-15M PRN (Reason: Chest Pain) RF: 0 gabapentin 300 mg Capsule 300 mg PO TID RF: 0 lisinopril 5 mg Tablet 5 mg PO DAILY RF: 0 Santyl 250 unit/gram Ointment 1 applic TOPICAL BID RF: 0 albuterol sulfate 90 mcg/actuation Hfa Aerosol Inhaler 2 puff INHALATION Q6H PRN (Reason: Wheezing) RF: 0 cholecalciferol (vitamin D3) [Vitamin D3] 1,000 unit Capsule 1,000 unit PO DAILY RF: 0 metoprolol tartrate 25 mg Tablet 12.5 mg PO BID RF: 0 Xarelto 20 mg Tablet 20 mg PO DAILY RF: 0 ED Provider: ANTONIA SALINAS
--- NOTE | 2019-05-07 18:40 | DI ---
EXAM: One-view chest HISTORY: Fever TECHNIQUE: Single frontal view the chest was obtained. Comparison to 10/15/2017. FINDINGS: Heart is stable size. Lungs are clear. The point vasculature appears normal. IMPRESSION: No active cardiopulmonary disease.
[2019-05-07 18:54] LABS: HEMATOCRIT 38.1 % (42.0-52.0)
--- NOTE | 2019-05-07 19:54 | CT ---
EXAM: CT Abdomen Pelvis Without IV contrast HISTORY: Sepsis, abdominal pain COMPARISON: 10/15/2017 TECHNIQUE: CT Abdomen Pelvis performed Without intravenous contrast. Coronal and sagital images obta ined. FINDINGS: Mild passive and subsegmental atelectasis in the dependent right lung base. Heart is enlarged. Trace pericardial effusion. Spleen is enlarged. The liver, pancreas, adrenals unremarkable. Gallbladder is absent. Redemonstra hailey bilateral nonobstructive nephrolithiasis which measure up to approximately 0.8 cm in the right mi d pole. Nonspecific symmetric mild perinephric fat stranding. No hydronephrosis. There are multipl e calculi within the dependent bladder. Barnes catheters present within the decompressed bladder. Th ere are a few non dependent foci of intra vesicular air. No bowel obstruction or abnormal bowel wall thickening. Moderate/large colorectal stool volume. Darrius endix is not definitely visualized. No definite adenopathy. Normal diameter aorta. Moderate atherosclerotic calcifications. No abnormal fluid collection, free fluid or free air. No acute osseous abnormality. Left lower buttock area of soft tissue stranding w ith possible ulcer. No definite fluid collection. Unchanged sclerotic focus in the right iliac wing . Stable chronic L1 superior plate compression deformity with height loss and anterior wedging. IMPRESSION: 1. No urinary or bowel obstruction. 2. Redemonstrated bilateral nonobstructive renal calculi. 3. Nonspecific right greater than left mild perinephric fat stranding. Infection should be excluded . 4. Multiple bladder calculi. 5. Barnes catheter in place. 6. Moderate/large colorectal stool volume. 7. Suspect left low buttock decubitus ulcer.
[2019-05-07] MEDS ORDERED: TYLENOL PO PRN (19:59)
[2019-05-07] MEDS ORDERED: ZOFRAN TAB PO PRN (20:03)
[2019-05-07] MEDS ORDERED: PROAIR HFA (SINGLE PATIENT USE) IH PRN (20:03)
[2019-05-07] MEDS ORDERED: DUONEB NEB PRN (20:03)
[2019-05-07] MEDS ORDERED: BACLOFEN PO PRN (20:03)
[2019-05-07] MEDS ORDERED: NITROSTAT SL PRN (20:03)
[2019-05-07] MEDS ORDERED: VANCOMYCIN 1 GM in SODIUM CHLORIDE 250 ML IV SCH (20:30)
[2019-05-07] MEDS ORDERED: ZOSYN 3.375 GM 3.375 GM in SODIUM CHLORIDE 50 ML IV SCH (20:30)
[2019-05-07] MEDS: SODIUM CHLORIDE 1,000 ML IV SCH (20:35)
[2019-05-07] MEDS: FLOMAX PO SCH (21:38)
[2019-05-07] MEDS: LOPRESSOR PO SCH (21:39)
[2019-05-07] MEDS: NEURONTIN PO SCH (21:39)
[2019-05-07 21:58] VITALS: BMI 16.5
[2019-05-07] MEDS: VENLAFAXINE 37.5 MG PO SCH (23:46)
[2019-05-08] MEDS ORDERED: ZOSYN 3.375 GM 3.375 GM in SODIUM CHLORIDE 50 ML IV SCH ×5 (03:00→13:00)
[2019-05-08] MEDS ORDERED: XARELTO PO SCH (09:00)
[2019-05-08] MEDS ORDERED: LOVENOX SUBCUT SCH (09:00)
[2019-05-08] MEDS: VANCOMYCIN 1 GM in SODIUM CHLORIDE 250 ML IV SCH ×2 (09:47→22:05)
[2019-05-08] MEDS: NEURONTIN PO SCH ×3 (09:50→20:35)
[2019-05-08] MEDS: LOPRESSOR PO SCH ×2 (09:51→20:35)
[2019-05-08] MEDS: ZESTRIL PO SCH (09:52)
[2019-05-08] MEDS: CORDARONE PO SCH (09:52)
[2019-05-08] MEDS: VENLAFAXINE 37.5 MG PO SCH ×2 (09:56→20:58)
[2019-05-08] MEDS ORDERED: SANTYL TP SCH ×2 (10:30→21:00)
[2019-05-08] MEDS: SODIUM CHLORIDE 1,000 ML IV SCH (10:47)
[2019-05-08] MEDS ORDERED: SENNA PO SCH (11:00)
[2019-05-08] MEDS: DUONEB NEB SCH ×3 (11:07→22:50)
--- NOTE | 2019-05-08 11:09 | PCM ---
Chief Complaint Chief Complaint: Pyelonephritis per ER MD; review of ER nurse admission note has "fever" indications. History of Present Illness History of Present Illness: Alvaro Kay is a pleasant 68yo male is a resident of [facility] w/ functional quadriplegia d/t Cerebral Palsy involving muscle weakness/spasticity, contractures and chronic pressure wounds, Unspecified dementia w/o behavioral disturbance, Atrial flutter w/ LT use of anticoagulants, Obstructive & Reflux Uropathy w/ chronic cath present on admission, HLD, COPD, CKD, HTN, and other health issues (see PMH) who presented via EMS 05/07/2019 17:59 after waxing and waning mild to moderate fever elevations during the day that was treated w/ prn Tylenol. Due to MD patient dementia and indication per record review, patient w/ weak speech that is garbled at time and difficult to understand is considered a poor historian. Most information w/o family present is gleaned from MD record review. Patient was noted in ER to have cloudy sediment filled urine per Barnes cath that was patent. Admission labs notes: CBC w/ WBC 10.72 H and eunormal Chronic DX anemia RBC 4.11, H/H 12.3/38.1; Chem Profile CO2 31.8H, BUN 23.6H, Creat 0.96N, Glucose 135.5 H, Ca+ 8.20L, and Albumin 3.08L; Urinalysis abn- Protein 2+, Blood 3+, Urobilinogen 2.0, Leuko Estrase 3+, WBC TNTC, and Bacteria 3+; urine C&S pending. CXR findings were negative for cardiopulmonary issues. CT of abd/pelvis w/o contrast noted: No urinary or bowel obstruction; Redemonstrated bilateral nonobstructive renal calculi; Nonspecific right greater than left mild perinephric fat stranding w/ infection should be excluded; multiple bladder calculi; Barnes catheter in place; moderate/large colorectal stool volume; and visualized the patient's chronic left low buttock decubitus ulcer. Patient presented to ER w/ 102.8 F fever w/ blood cultures X1 drawn w/ results pending. Wound cultures were also taken of all his wounds after patient admission. Patient was admitted as inpatient for Pyelonephritis complicated w/ Obstructive & reflux Urology requiring chronic cath POA and CKD. Patient will be monitored and treated w/ Vancomycin and Cefepime requiring Pharmacy monitoring due to his CKD. His Functional quadraplegia w/ chronic pressure wounds add to his high risk/care status. Review of Systems Constitutional: Reports fever and other (Poor historian w/ ROS known only by brief SNF record review. See HPI. ) Gastrointestinal: Reports constipation (Noted in snf record and radiology review on admission. ) Genitourinary: Reports other (Barnes cath in place upon admission from SNF. ) Neurological: Reports problems with walking (Moved using dominguez lift; W/C w/ difficulty due to CP contracturing. ) Habits: Reports other (unable to use since SNF; former use unknown ); Denies tobacco use, substance use and alcohol use Allergies Allergies Allergy/AdvReac Type Severity Reaction Status Date / Time No Known Allergies Allergy Unverified 05/07/19 18:19 [facility], [facility] Medical History (Updated 05/08/19 @ 14:16 by THERESA MCGUIRE) Abnormal posture (Acute) Cerebral palsy, unspecified (Chronic) Chronic kidney disease, unspecified (Chronic) Chronic obstructive pulmonary disease, unspecified (Acute) Dysphagia, unspecified (Acute) Enterocolitis due to Clostridium difficile, not specified as recurrent (Acute) Essential (primary) hypertension (Chronic) Functional quadriplegia (Acute) Heart failure, unspecified (Acute) Hyperlipidemia, unspecified (Chronic) Hypokalemia (Acute) ad terminal makeup operator (current) use of anticoagulants (Chronic) Muscle weakness (generalized) (Chronic) Obstructive and reflux uropathy, unspecified (Chronic) Other lack of coordination (Acute) Paraphimosis (Acute) Pressure ulcer of right foot (Chronic) Pressure ulcer of sacral region, unspecified stage (Acute) Unspecified atrial flutter (Chronic) Unspecified dementia without behavioral disturbance (Chronic) Urinary tract infection, site not specified (Acute) Surgical History (Updated 05/08/19 @ 11:04 by THERESA MCGUIRE) No history of previous surgery (Acute) Family History Other No known health problems Social History (Updated 05/08/19 @ 11:06 by THERESA MCGUIRE) Smoking and tobacco status: Smoker, status unknown Alcohol intake: unknown Substance use type: unknown Sima/temple: [employer] Housing: [facility] Marital status: D Lives independently: No Highest education level completed: don't know Current occupational status: disabled History of recent travel: No Current gender identity: male Current diet type/program: regular Physical activity functional status: restricted to bed Medications Medications: Medications Generic Name Dose Route Start Last Admin Trade Name Freq PRN Reason Stop Dose Admin Acetaminophen 650 mg 05/07/19 19:59 Tylenol PO Q4H PRN Mild Pain Albuterol/Ipratropium 3 ml 05/08/19 12:00 Duoneb NEB RTQ6H KWESI Amiodarone HCl 200 mg 05/08/19 09:00 05/08/19 09:52 Cordarone PO 200 mg DAILY KWESI Administration Atorvastatin Calcium 10 mg 05/08/19 17:00 Lipitor PO QPM KWESI Baclofen 20 mg 05/07/19 20:03 Baclofen PO TID PRN Spasms Collagenase 1 applic 05/08/19 21:00 Santyl TP BID KWESI Collagenase 1 applic 05/08/19 21:00 Santyl TP BID KWESI Collagenase 1 applic 05/08/19 10:30 Santyl TP DAILY KWESI Gabapentin 300 mg 05/07/19 21:00 05/08/19 09:50 Neurontin PO 300 mg TID KWESI Administration Sodium Chloride 1,000 mls @ 75 mls/hr 05/07/19 20:00 05/08/19 10:47 Sodium Chloride IV 75 mls/hr .[id number] KWESI Administration Vancomycin HCl 1 gm/ Sodium 250 mls @ 125 mls/hr 05/08/19 09:00 05/08/19 09:47 Chloride IV 05/10/19 20:29 125 mls/hr Q12HR KWESI Administration CEFEPIME 2 GM/D5W 2 gm in 50 mls @ 75 mls/hr 05/08/19 10:30 Maxipime 2 Gm/50 Ml D5w IV 05/11/19 10:29 Q12HR KWESI Lisinopril 5 mg 05/08/19 09:00 05/08/19 09:52 Zestril PO 5 mg DAILY KWESI Administration Metoprolol Tartrate 12.5 mg 05/07/19 21:00 05/08/19 09:51 Lopressor PO 12.5 mg BID KWESI Administration Nitroglycerin 0.4 mg 05/07/19 20:03 Nitrostat SL Q5MIN X 3 DOSES PRN Chest Pain Non-Formulary Medication 37.5 mg 05/07/19 21:00 05/08/19 09:56 Venlafaxine PO Not Given TID [facility] Ondansetron HCl 4 mg 05/07/19 20:03 Zofran Tab PO Q8H PRN Nausea / Vomiting Rivaroxaban 20 mg 05/08/19 09:00 05/08/19 09:52 Xarelto PO 20 mg DAILY [facility] Administration Sennosides 8.6 mg 05/08/19 11:00 Senna PO BID [facility] Tamsulosin HCl 0.4 mg 05/07/19 21:00 05/07/19 21:38 Flomax PO Not Given BEDTIME [facility] Body Composition Height: 5 ft 10 in Weight: 115 lb 8.356 oz Body Mass Index (BMI): 16.5 Vital Signs Temperature: 98.1 F Pulse Rate: 64 Respiratory Rate: 18 Blood Pressure: 126/51 O2 Sat by Pulse Oximetry: 98 Physical Examination Appearance: Reports Ill-appearing, No pain distress and Cachectic Ill-appearing: Mild Pain Distress: None Eyes: Reports NOAM, EOMI and Conjunctiva clear ENT: Reports Ears normal, Nose normal and Oropharynx normal Neck: Supple Respiratory: Reports Airway patent, Breath sounds equal, Respirations nonlabored and Rhonchi (Scattered L lung field w/ moderate findings entire R lung plata p osteriorly. ); Denies Breath sounds clear, Breath sounds diminished, Crackles, Wheezes and Retractions Cardiovascular: Reports RRR, Pulses normal, No rub and No murmur GI/: Reports Soft (moderately firm w/o moving, guarding on palpation.), Bowel sounds normal, No Organomegaly and Mass (LLQ w/ soft palpation of likely stool post CT abd/pelvis film review. ); Denies Tender, Bowel sounds hypoactive, Bowel sounds hyperactive, Hepatomegaly and Splenomegaly Musculoskeletal: Reports No edema, No calf tenderness, Limited ROM (Very limited w/ chronic contractures all limbs and signs of CP.) and Limited strength; Denies Normal strength Skin: Reports Warm (pressure sore R outer dorsal foot 2.4X1cm denuded w/ serosang drainage cultured by RN; R hallux denuded pressure sore 6X6cm w/ serosang drainage; Lower sacral pressure sore w/ 1cm depth 2X1cm w/ lt. cream drainage--all wounds cultured per GORDY Wong during exam. ), Dry and Pale; Denies Diaphoretic and Cyanotic Neurological: Reports Sensation intact, Reflexes intact, Cranial nerves intact, Alert, Oriented (X3) and CN Palsy; Denies Motor intact, Disoriented, Alert to verbal, Alert to pain and Unresponsive Psychiatric: Reports Affect appropriate and Mood appropriate; Denies Anxious and Depressed Lab/Tests/Diagnostic Imaging Lab/Tests/Diagnostic Imaging: Lab Review 05/07/19 05/07/19 05/07/19 18:15 18:15 18:15 WBC 10.72 H RBC 4.11 L Hgb 12.3 L Hct 38.1 L MCV 92.7 MCH 29.9 MCHC 32.3 RDW Coeff of Carlita 15.6 H Plt Count 106 L Immature Gran % (Auto) 0.4 Neut % (Auto) 88.0 H Lymph % (Auto) 3.9 L [place] % (Auto) 7.4 Eos % (Auto) 0.1 Baso % (Auto) 0.2 Immature Gran # (Auto) 0.0 Neut # (Auto) 9.4 H Lymph # (Auto) 0.4 L [place] # (Auto) 0.8 Eos # (Auto) 0.0 Baso # (Auto) 0.0 Sodium Cancelled Potassium Cancelled Chloride Cancelled Carbon Dioxide Cancelled Anion Gap Cancelled BUN Cancelled Creatinine Cancelled Estimated GFR (MDRD) Cancelled BUN/Creatinine Ratio Cancelled Glucose Cancelled Lactic Acid Calcium Cancelled Total Bilirubin Cancelled AST Cancelled ALT Cancelled Alkaline Phosphatase Cancelled Total Protein Cancelled Albumin Cancelled Globulin Cancelled Albumin/Globulin Ratio Cancelled Urine Color Michelle Urine Clarity Cloudy Urine pH 7.5 Ur Specific [place] 1.015 Urine Protein 2+ H Urine Glucose (UA) Negative Urine Ketones Negative Urine Blood 3+ H Urine Nitrite Negative Urine Bilirubin Negative Urine Urobilinogen 2.0 H Ur Leukocyte Esterase 3+ H Urine Microscopic RBC Tntc Urine Microscopic WBC Tntc Ur Squamous Epith Cells Not present Urine Bacteria 3+ Influ A Molecular Assay Influ B Molecular Assay 05/07/19 05/07/19 05/07/19 18:20 18:30 19:00 WBC RBC Hgb Hct MCV MCH MCHC RDW Coeff of Carlita Plt Count Immature Gran % (Auto) Neut % (Auto) Lymph % (Auto) [place] % (Auto) Eos % (Auto) Baso % (Auto) Immature Gran # (Auto) Neut # (Auto) Lymph # (Auto) [place] # (Auto) Eos # (Auto) Baso # (Auto) Sodium 141.8 Potassium 3.82 Chloride 105.6 Carbon Dioxide 31.8 H Anion Gap 8.22 BUN 23.6 H Creatinine 0.94 Estimated GFR (MDRD) 79.00 BUN/Creatinine Ratio 25.10 Glucose 135.5 H Lactic Acid 1.14 Calcium 8.20 L Total Bilirubin 1.03 AST 31.6 ALT 26.9 Alkaline Phosphatase 87.8 Total Protein 6.42 Albumin 3.08 L Globulin 3.34 Albumin/Globulin Ratio 0.92 Urine Color Urine Clarity Urine pH Ur Specific [place] Urine Protein Urine Glucose (UA) Urine Ketones Urine Blood Urine Nitrite Urine Bilirubin Urine Urobilinogen Ur Leukocyte Esterase Urine Microscopic RBC Urine Microscopic WBC Ur Squamous Epith Cells Urine Bacteria Influ A Molecular Assay Negative by naat Influ B Molecular Assay Negative by naat 05/07/2019 CXR TECHNIQUE: Single frontal view the chest was obtained. Comparison to 10/15/2017. FINDINGS: Heart is stable size. Lungs are clear. The point vasculature appears normal. IMPRESSION: No active cardiopulmonary disease. 05/07/2019 CT of ABd/Pelvis w/o Contrast IMPRESSION: 1. No urinary or bowel obstruction. 2. Redemonstrated bilateral nonobstructive renal calculi. 3. Nonspecific right greater than left mild perinephric fat stranding. Infection should be excluded. 4. Multiple bladder calculi. 5. Barnes catheter in place. 6. Moderate/large colorectal stool volume. 7. Suspect left low buttock decubitus ulcer. Orders Category Date Time Status ADMIT PATIENT INPATIENT .TO MEDSURG (MONITORED BED) ADMISSION 05/07/19 19:58 Active EKG-(ED ONLY) Stat CARDIO 05/07/19 19:16 Completed NEBULIZER TREATMENT Routine CARDIO 05/08/19 10:13 Active ACTIVITY .Complete BR CARE 05/07/19 19:59 Active DISCONTINUE URINARY CATHETER ONCE CARE 05/08/19 08:28 Active Notify RT of Treatment ONCE CARE 05/08/19 10:13 Active PHARMACIST CONSULT ONCE CARE 05/07/19 21:58 Active PHARMACIST CONSULT ONCE CARE 05/08/19 06:19 Active TELEMETRY MONITORING TELE CARE 05/07/19 19:58 Active VITAL SIGNS Q8HR CARE 05/07/19 19:59 Active VTE PREVENTION .SCD 24 Hours CARE 05/08/19 12:09 Ordered REGULAR DIET DIETARY 05/07/19 Breakfast Ordered CONSULT PREPARED FOODS PRODUCTION TEAM MEMBER ONCE PREPARED FOODS PRODUCTION TEAM MEMBER 05/07/19 21:58 Active BLOOD CULTURE Stat LAB 05/07/19 18:24 Received CBC W/ AUTO DIFF DAILY@0600 LAB 05/09/19 06:00 Ordered CBC W/ AUTO DIFF Stat LAB 05/07/19 18:15 Completed COMPREHENSIVE METABOLIC PANEL DAILY@0600 LAB 05/09/19 06:00 Ordered COMPREHENSIVE METABOLIC PANEL Routine LAB 05/07/19 19:00 Completed FLU A/B MOLECULAR Stat LAB 05/07/19 18:20 Completed LACTIC ACID Stat LAB 05/07/19 18:30 Completed MRSA SCREEN Routine LAB 05/07/19 23:15 Received POS BC ID AND CHRIS Stat LAB 05/07/19 18:30 Received POS BC ID AND CHRIS Stat LAB 05/07/19 18:30 Received URINALYSIS C & S IF INDICATED Stat LAB 05/07/19 18:15 Completed URINE CULTURE Stat LAB 05/07/19 18:15 Results WOUND CULTURE Stat LAB 05/07/19 23:15 Results WOUND CULTURE Stat LAB 05/07/19 23:15 Results Acetaminophen [Tylenol] MEDS 05/07/19 18:19 Discontinued 650 mg PO ONCE STA Acetaminophen [Tylenol] MEDS 05/07/19 19:59 Active 650 mg PO Q4H PRN Amiodarone HCl [Cordarone] MEDS 05/08/19 09:00 Active 200 mg PO DAILY Atorvastatin Calcium [Lipitor] MEDS 05/08/19 17:00 Active 10 mg PO QPM Baclofen MEDS 05/07/19 20:03 Active 20 mg PO TID PRN Cefepime 2 gm/D5w [Maxipime 2 gm/50 ml D5w] MEDS 05/08/19 10:30 Active 2 gm in 50 ml IV Q12HR Collagenase Clostridium Hist [Santyl] MEDS 05/08/19 21:00 Ordered 1 applic TP BID Collagenase Clostridium Hist [Santyl] MEDS 05/08/19 21:00 Ordered 1 applic TP BID Collagenase Clostridium Hist [Santyl] MEDS 05/08/19 10:30 Ordered 1 applic TP DAILY Gabapentin [Neurontin] MEDS 05/07/19 21:00 Active 300 mg PO TID Ipratropium/Albuterol Neb [Duoneb] MEDS 05/07/19 20:03 Stop Req 3 ml NEB Q4H PRN Ipratropium/Albuterol Neb [Duoneb] MEDS 05/08/19 12:00 Active 3 ml NEB RTQ6H Lisinopril [Zestril] MEDS 05/08/19 09:00 Active 5 mg PO DAILY Metoprolol Tartrate [Lopressor] MEDS 05/07/19 21:00 Active 12.5 mg PO BID Nitroglycerin [Nitrostat] MEDS 05/07/19 20:03 Active 0.4 mg SL Q5MIN X 3 DOSES PRN Ondansetron HCl [Zofran Tab] MEDS 05/07/19 20:03 Active 4 mg PO Q8H PRN Piperacillin Sodium/Tazobactam [Zosyn 3.375 gm] 3.375 MEDS 05/07/19 18:19 Discontinued gm 0.9 % Sodium Chloride [Sodium Chloride] 50 ml IV ONCE Piperacillin Sodium/Tazobactam [Zosyn 3.375 gm] 3.375 MEDS 05/07/19 20:30 Discontinued gm 0.9 % Sodium Chloride [Sodium Chloride] 50 ml IV Q8H Piperacillin Sodium/Tazobactam [Zosyn 3.375 gm] 3.375 MEDS 05/08/19 03:00 Discontinued gm 0.9 % Sodium Chloride [Sodium Chloride] 50 ml IV Q8H Piperacillin Sodium/Tazobactam [Zosyn 3.375 gm] 3.375 MEDS 05/08/19 03:00 Discontinued gm 0.9 % Sodium Chloride [Sodium Chloride] 50 ml IV Q8H Rivaroxaban [Xarelto] MEDS 05/08/19 09:00 Active 20 mg PO DAILY Sennosides [Senna] MEDS 05/08/19 11:00 Ordered 8.6 mg PO BID Sodium Chloride 0.9% [Sodium Chloride] 1,000 ml MEDS 05/07/19 20:00 Active IV 75 mls/hr Sodium Chloride 0.9% [Sodium Chloride] 1,000 ml MEDS 05/07/19 18:19 Discontinued IV BOLUS Tamsulosin HCl [Flomax] MEDS 05/07/19 21:00 Active 0.4 mg PO BEDTIME Vancomycin 1 gm MEDS 05/07/19 20:30 Discontinued 0.9 % Sodium Chloride [Sodium Chloride] 250 ml IV Q12H Vancomycin 1 gm MEDS 05/08/19 09:00 Active 0.9 % Sodium Chloride [Sodium Chloride] 250 ml IV Q12HR venlafaxine MEDS 05/07/19 21:00 Active 37.5 mg PO TID RESUSCITATION STATUS Routine OTHERS 05/07/19 19:59 Ordered CHEST, 1V AP ONLY Stat RADS 05/07/19 18:[address] ABD/PEL WO RENAL STONE PROT Stat RADS 05/07/19 19:09 Completed Medications Generic Name Dose Route Start Last Admin Trade Name Freq PRN Reason Stop Dose Admin Acetaminophen 650 mg 05/07/19 19:59 Tylenol PO Q4H PRN Mild Pain Albuterol/Ipratropium 3 ml 05/08/19 12:00 Duoneb NEB RTQ6H KWESI Amiodarone HCl 200 mg 05/08/19 09:00 05/08/19 09:52 Cordarone PO 200 mg DAILY KWESI Administration Atorvastatin Calcium 10 mg 05/08/19 17:00 Lipitor PO QPM KWESI Baclofen 20 mg 05/07/19 20:03 Baclofen PO TID PRN Spasms Collagenase 1 applic 05/08/19 21:00 Santyl TP BID KWESI Collagenase 1 applic 05/08/19 21:00 Santyl TP BID KWESI Collagenase 1 applic 05/08/19 10:30 Santyl TP DAILY KWESI Gabapentin 300 mg 05/07/19 21:00 05/08/19 09:50 Neurontin PO 300 mg TID KWESI Administration Sodium Chloride 1,000 mls @ 75 mls/hr 05/07/19 20:00 05/08/19 10:47 Sodium Chloride IV 75 mls/hr .[id number] KWESI Administration Vancomycin HCl 1 gm/ Sodium 250 mls @ 125 mls/hr 05/08/19 09:00 05/08/19 09:47 Chloride IV 05/10/19 20:29 125 mls/hr Q12HR KWESI Administration CEFEPIME 2 GM/D5W 2 gm in 50 mls @ 75 mls/hr 05/08/19 10:30 Maxipime 2 Gm/50 Ml D5w IV 05/11/19 10:29 Q12HR KWESI Lisinopril 5 mg 05/08/19 09:00 05/08/19 09:52 Zestril PO 5 mg DAILY KWESI Administration Metoprolol Tartrate 12.5 mg 05/07/19 21:00 05/08/19 09:51 Lopressor PO 12.5 mg BID KWESI Administration Nitroglycerin 0.4 mg 05/07/19 20:03 Nitrostat SL Q5MIN X 3 DOSES PRN Chest Pain Non-Formulary Medication 37.5 mg 05/07/19 21:00 05/08/19 09:56 Venlafaxine PO Not Given TID [facility] Ondansetron HCl 4 mg 05/07/19 20:03 Zofran Tab PO Q8H PRN Nausea / Vomiting Rivaroxaban 20 mg 05/08/19 09:00 05/08/19 09:52 Xarelto PO 20 mg DAILY [facility] Administration Sennosides 8.6 mg 05/08/19 11:00 Senna PO BID [facility] Tamsulosin HCl 0.4 mg 05/07/19 21:00 05/07/19 21:38 Flomax PO Not Given BEDTIME [facility] Discontinued Medications Generic Name Dose Route Start Last Admin Trade Name Freq PRN Reason Stop Dose Admin Acetaminophen 650 mg 05/07/19 18:19 05/07/19 19:08 Tylenol PO 05/07/19 18:20 650 mg ONCE STA Administration Albuterol/Ipratropium 3 ml 05/07/19 20:03 Duoneb NEB Q4H PRN Wheezing Sodium Chloride 1,000 mls @ 1,000 mls/hr 05/07/19 18:19 05/07/19 18:55 Sodium Chloride IV 05/07/19 19:18 1,000 mls/hr BOLUS STA Administration Piperacillin Sod/Tazobactam 50 mls @ 50 mls/hr 05/07/19 18:19 05/07/19 19:00 Sod 3.375 gm/ Sodium Chloride IV 05/07/19 19:18 50 mls/hr ONCE STA Administration Piperacillin Sod/Tazobactam 50 mls @ 50 mls/hr 05/07/19 20:30 Sod 3.375 gm/ Sodium Chloride IV 05/10/19 20:29 Q8H KWESI Vancomycin HCl 1 gm/ Sodium 250 mls @ 250 mls/hr 05/07/19 20:30 05/07/19 21:55 Chloride IV 05/10/19 20:29 250 mls/hr Q12H KWESI Administration Piperacillin Sod/Tazobactam 50 mls @ 50 mls/hr 05/08/19 03:00 05/08/19 03:17 Sod 3.375 gm/ Sodium Chloride IV 05/11/19 03:59 50 mls/hr Q8H KWESI Administration Piperacillin Sod/Tazobactam 50 mls @ 50 mls/hr 05/08/19 03:00 05/08/19 04:09 Sod 3.375 gm/ Sodium Chloride IV 05/11/19 03:59 Not Given Q8H KWESI Assessment (1) Pyelonephritis: Status: Acute Code(s): N12 - Tubulo-interstitial nephritis, not specified as acute or chronic SNOMED Code(s): 52091018 (2) Obstructive and reflux uropathy, unspecified: Status: Chronic Code(s): N13.9 - Obstructive and reflux uropathy, unspecified SNOMED Code(s): 79526459 (3) Chronic kidney disease, unspecified: Status: Chronic Code(s): N18.9 - Chronic kidney disease, unspecified SNOMED Code(s): 416909048 Qualifiers: Chronic kidney disease stage: unspecified stage Qualified Code(s): N18.9 - Chronic kidney disease, unspecified (4) Unspecified atrial flutter: Status: Chronic Code(s): I48.92 - Unspecified atrial flutter SNOMED Code(s): 0620293 Qualifiers: Atrial flutter type: unspecified Qualified Code(s): I48.92 - Unspecified atrial flutter (5) FDC (current) use of anticoagulants: Status: Chronic Code(s): Z79.01 - ad terminal makeup operator (current) use of anticoagulants SNOMED Code(s): 791398294 (6) Hyperlipidemia, unspecified: Status: Chronic Code(s): E78.5 - Hyperlipidemia, unspecified SNOMED Code(s): 33690211 Qualifiers: Hyperlipidemia type: unspecified Qualified Code(s): E78.5 - Hyperlipidemia, unspecified (7) Essential (primary) hypertension: Status: Chronic Code(s): I10 - Essential (primary) hypertension SNOMED Code(s): 31872494 (8) Muscle weakness (generalized): Status: Chronic Code(s): M62.81 - Muscle weakness (generalized) SNOMED Code(s): 05606280 (9) Cerebral palsy, unspecified: Status: Chronic Code(s): G80.9 - Cerebral palsy, unspecified SNOMED Code(s): 730324934 Qualifiers: Cerebral palsy type: unspecified type Qualified Code(s): G80.9 - Cerebral palsy, unspecified (10) Functional quadriplegia: Status: Acute Code(s): R53.2 - Functional quadriplegia SNOMED Code(s): 145141198463980 (11) Pressure ulcer of sacral region, unspecified stage: Status: Acute Code(s): L89.159 - Pressure ulcer of sacral region, unspecified stage SNOMED Code(s): 021495981 Qualifiers: Pressure injury stage: unspecified pressure injury stage Qualified Code(s): L89.159 - Pressure ulcer of sacral region, unspecified stage (12) Pressure ulcer of right foot: Status: Chronic Code(s): L89.899 - Pressure ulcer of other site, unspecified stage SNOMED Code(s): 042647789 Qualifiers: Pressure injury stage: unspecified pressure injury stage Qualified Code(s): L89.899 - Pressure ulcer of other site, unspecified stage (13) Unspecified dementia without behavioral disturbance: Status: Chronic Code(s): F03.90 - Unspecified dementia without behavioral disturbance SNOMED Code(s): 98379527 Qualifiers: Dementia type: unspecified type Qualified Code(s): F03.90 - Unspecified dementia without behavioral disturbance Plan Plan: Acute Pyelonephritis-Worsening of Chronic Obstructive & Reflux Uropathy w/ CKD and chronic Barnes Cath POA; Vancomycin and Cefepime IV w/ renal dosing per pharmacy; treat fever w/ Tylenol sparingly; IVF sparingly for hx CHF, unspecified type; I&O; Daily weights; continue home meds; VS q 4hrs; Urine C&S pending; Blood cultures pending; Observe patient and call [employer] Hospitalist for any concerns w/ frail condition he could change very quickly--Full Code status cont'd.; monitor labs. Unspecified Atrial Flutter-unchanged; telemetry; con't home meds; monitor VS. Chronic use of Anticoagulants--Con't Xarelto. Hyperlipidemia--continune home meds. Hypertension--stable; continue home meds; monitor VS and labs. Muscle Weakness, Cerebral Palsy w/ Contractures and Functional Quadriplegia --Turn patient Q1 hr.; Heel protectors/knee protectors, and careful, gentle care w/ turning and positioning patient; cont home meds as needed; low air loss mattress; PT to evalute and see patient . Multiple chronic pressure Ulcers--R foot and Sacral areas--Wound care w/ Santyl to be continued as at SNF; culture all wounds & will treat if indicated per wound culture results. Prevention of further wounds by frequent turning as ordered; skin assessment BID and prn.
[2019-05-08] MEDS: MAXIPIME 2 GM/50 ML D5W 2 GM/50 ML BAG IV SCH ×2 (11:42→20:36)
[2019-05-08] MEDS ORDERED: MILK OF MAGNESIA PO PRN (12:13)
[2019-05-08] MEDS ORDERED: IMODIUM PO PRN (12:13)
[2019-05-08] MEDS ORDERED: TESSALON PERLES PO PRN (12:13)
[2019-05-08] MEDS: VITAMIN D PO SCH (13:46)
[2019-05-08] MEDS: MULTIVITAMIN TABLET PO SCH (13:47)
[2019-05-08] MEDS: VITAMIN C PO SCH (13:47)
[2019-05-08] MEDS: SANTYL TP SCH ×6 (13:59→22:45)
[2019-05-08] MEDS: COLACE PO SCH (14:13)
[2019-05-08] MEDS: LIPITOR PO SCH (16:59)
[2019-05-08] MEDS: SENNA PO SCH (20:36)
[2019-05-08] MEDS: FLOMAX PO SCH (20:36)
[2019-05-08] MEDS ORDERED: SENNOSIDES DOCUSATE SODIUM PO SCH (21:00)
[2019-05-09] MEDS: DUONEB NEB SCH ×4 (04:36→22:36)
[2019-05-09] MEDS: SODIUM CHLORIDE 1,000 ML IV SCH (04:41)
[2019-05-09 04:48] LABS: HEMATOCRIT 29.6 % (42.0-52.0)
[2019-05-09] MEDS ORDERED: K-DUR PO STA ×2 (07:04→09:17)
--- NOTE | 2019-05-09 07:21 | PCM.PROG ---
Note significant drop in labs this AM; Lab called and will redraw and check results again. Nursing reports no significant patient changes over night known. K+ down to 2.9, Calcium 7.78, Total Protein 5.44, Albumin 2.51; CBC Rbc 4.11 to 3.24, Hgb 12.3 to 9.6, Hct 38.1 to 29.6, Neut 88.0- 77.5H. Will ask lab to recheck findings.
[2019-05-09] MEDS ORDERED: SODIUM CHLORIDE 0.9%-KCL 20 MEQ 1,000 ML IV SCH (08:00)
--- NOTE | 2019-05-09 08:01 | PCM.PROG ---
Date Seen by Provider: 05/09/19 Time Seen by Provider: 07:20 Subjective: Patient sleeping on right side in position and rouses slowly to verbal stimuli initially. Denies pain. Answers nurse when addressed verbally. Staff notes he slept most of night. No issues were noted by staff. 05/09/2019 10:00AM Patient rechecked. Patient no alert, taking PO meds well per nursing staff, denies pain. Wants to be kept on his left side, but explained the importance of turning and positioning him every hour per nursing staff to prevent further bed sores. No other concerns verbalized at this time. Objective: Vitals: T=98.3 F, P=62, R=18, IQ=027/58, SPO2=96 HEENT: Eyes-no redness, swelling or d/c. Nasal mucosa pink and moist. Oral mucosa pink and dry; no lesions. Neck: Supple; NT; No lymphadenopathy Lungs: CTA. Breath sounds diminished. No rales, rhonchi, crackles, or wheezing. No cough on exam. No retractions. Respirations easy and regular. RA O2 sat 96%. CVS: RRR; No murmur or gallops. No JVD. PPP 2+/4+ and =. No edema. No cyanosis; NBB Abdomen: mildly firm, NT, no rebound tenderness or guarding, no organomegaly or masses. CHARLOTTE/SO present. No signs of diarrhea presently. Extremities: Contracture of all extremities w/ limited movement LUE. No edema. No muscular tenderness or erythema. Chronic bedbound status needing assistance w/ all ADL's. Neurological: Mild lethargy. Cooperative and pleasant. Speech low volume and difficulty to understand. Skin: Dry & intact. No rashes or lesions noted. Dressing dry and intact to sacral area and R hallux and R outer foot pad areas. Lab/Tests/Diagnostic Imaging: Laboratory Results WBC 8.51 K/ul (4.2-10.2) 05/09/19 04:27 RBC 3.24 10^6/ul (4.70-6.10) L 05/09/19 04:27 Hgb 9.6 g/dl (14.0-18.0) L 05/09/19 04:27 Hct 29.6 % (42.0-52.0) L D 05/09/19 04:27 MCV 91.4 fl (80.0-94.0) 05/09/19 04:27 MCH 29.6 pg (27.0-31.0) 05/09/19 04:27 MCHC 32.4 (31.8-35.4) 05/09/19 04:27 RDW Coeff of Carlita 15.3 % (11.6-14.8) H 05/09/19 04:27 Plt Count 87 10^3/uL (140-440) L 05/09/19 04:27 Immature Gran % (Auto) 0.4 % (0.0-5.0) 05/09/19 04:27 Neut % (Auto) 77.5 % (42.2-75.2) H 05/09/19 04:27 Lymph % (Auto) 12.1 (10.0-50.0) 05/09/19 04:27 [place] % (Auto) 8.6 (0-10) 05/09/19 04:27 Eos % (Auto) 1.2 % (0.0-7.0) 05/09/19 04:27 Baso % (Auto) 0.2 % (0.0-3.0) 05/09/19 04:27 Immature Gran # (Auto) 0.0 (0.0-1.0) 05/09/19 04:27 Neut # (Auto) 6.6 K/ul (2.0-6.9) 05/09/19 04:27 Lymph # (Auto) 1.0 K/uL (0.60-3.4) 05/09/19 04:27 [place] # (Auto) 0.7 K/uL (0.4-2.0) 05/09/19 04:27 Eos # (Auto) 0.1 K/ul (0.0-0.7) 05/09/19 04:27 Baso # (Auto) 0.0 K/uL (0-0.2) 05/09/19 04:27 Sodium 138.3 mmol/L (134.5-145) 05/09/19 04:27 Potassium 2.96 mmol/L (3.5-5.1) L 05/09/19 04:27 Chloride 108.3 mmol/L (98-107) H 05/09/19 04:27 Carbon Dioxide 26.4 mmol/L (22-30.0) 05/09/19 04:27 Anion Gap 6.56 05/09/19 04:27 BUN 15.7 mg/dL (9-20) 05/09/19 04:27 Creatinine 0.91 mg/dL (0.60-1.10) 05/09/19 04:27 Estimated GFR (MDRD) 82.00 mL/min 05/09/19 04:27 BUN/Creatinine Ratio 17.25 05/09/19 04:27 Glucose 83.5 mg/dL (74-106) 05/09/19 04:27 Lactic Acid 0.90 mmol/L (0.7-2.1) 05/09/19 07:30 Calcium 7.78 mg/dL (8.4-10.2) L 05/09/19 04:27 Total Bilirubin 0.91 mg/dL (0.2-1.3) 05/09/19 04:27 AST 29.0 U/L (17-59) 05/09/19 04:27 ALT 25.7 U/L (0-50) 05/09/19 04:27 Alkaline Phosphatase 60.6 U/L (56-119) D 05/09/19 04:27 Total Protein 5.44 g/dL (6.3-8.2) L 05/09/19 04:27 Albumin 2.51 g/dL (3.5-5.0) L 05/09/19 04:27 Globulin 2.93 05/09/19 04:27 Albumin/Globulin Ratio 0.85 05/09/19 04:27 Urine Color Michelle (YELLOW) 05/07/19 18:15 Urine Clarity Cloudy (CLEAR) 05/07/19 18:15 Urine pH 7.5 (5-9) 05/07/19 18:15 Ur Specific [place] 1.015 (1.005-1.030) 05/07/19 18:15 Urine Protein 2+ (NEGATIVE) H 05/07/19 18:15 Urine Glucose (UA) Negative (NEGATIVE) 05/07/19 18:15 Urine Ketones Negative (NEGATIVE) 05/07/19 18:15 Urine Blood 3+ (NEGATIVE) H 05/07/19 18:15 Urine Nitrite Negative (NEGATIVE) 05/07/19 18:15 Urine Bilirubin Negative (NEGATIVE) 05/07/19 18:15 Urine Urobilinogen 2.0 (0.2) H 05/07/19 18:15 Ur Leukocyte Esterase 3+ (NEGATIVE) H 05/07/19 18:15 Urine Microscopic RBC Tntc (0-2) 05/07/19 18:15 Urine Microscopic WBC Tntc (0-2) 05/07/19 18:15 Ur Squamous Epith Cells Not present (0-5) 05/07/19 18:15 Urine Bacteria 3+ (NOT PRESENT) 05/07/19 18:15 Influ A Molecular Assay Negative by naat (NEGATIVE) 05/07/19 18:20 Influ B Molecular Assay Negative by naat (NEGATIVE) 05/07/19 18:20 05/07/2019 CT ABD/Pelvis wo renal stone protocol Impression: 1. No urinary or bowel obstruction. 2. Redemonstrated bilateral nonobstructive renal calculi. 3. Nonspecific right greater than left mild perinephric fat stranding. Infection should be excluded. 4. Multiple bladder calculi. 5. Branes catheter in place. 6. Moderate/large colorectal stool volume. 7. Suspect left low buttock decubitus ulcer. 05/07/2019 CXR 1V IMPRESSION: No active cardiopulmonary disease. 05/07/2019 Wound C&S Sacrum lesion Preliminary report: Heavy Growth Gram Neg. Rods; Moderate Growth Gram Neg Rods 05/07/2019 Wound C&S R Hallux lesion Preliminary report: Moderate Normal Yi 05/07/2019 Urine C&S Preliminary report: Heavy Growth Gram Neg. Rods --- Sensitive to Ceftriaxo ne. (1) Pyelonephritis: Status: Acute Code(s): N12 - Tubulo-interstitial nephritis, not specified as acute or chronic SNOMED Code(s): 47689442 (2) Obstructive and reflux uropathy, unspecified: Status: Chronic Code(s): N13.9 - Obstructive and reflux uropathy, unspecified SNOMED Code(s): 88542051 (3) Chronic kidney disease, unspecified: Status: Chronic Code(s): N18.9 - Chronic kidney disease, unspecified SNOMED Code(s): 247115881 (4) Hypokalemia: Status: Chronic Code(s): E87.6 - Hypokalemia SNOMED Code(s): 25148135 (5) Unspecified atrial flutter: Status: Chronic Code(s): I48.92 - Unspecified atrial flutter SNOMED Code(s): 0990687 (6) terminal make up operator (current) use of anticoagulants: Status: Chronic Code(s): Z79.01 - terminal make up operator (current) use of anticoagulants SNOMED Code(s): 429236997 (7) Hyperlipidemia, unspecified: Status: Chronic Code(s): E78.5 - Hyperlipidemia, unspecified SNOMED Code(s): 21490277 (8) Essential (primary) hypertension: Status: Chronic Code(s): I10 - Essential (primary) hypertension SNOMED Code(s): 91500450 (9) Muscle weakness (generalized): Status: Chronic Code(s): M62.81 - Muscle weakness (generalized) SNOMED Code(s): 44296203 (10) Cerebral palsy, unspecified: Status: Chronic Code(s): G80.9 - Cerebral palsy, unspecified SNOMED Code(s): 813734013 (11) Functional quadriplegia: Status: Acute Code(s): R53.2 - Functional quadriplegia SNOMED Code(s): 636731960326278 (12) Pressure ulcer of sacral region, unspecified stage: Status: Acute Code(s): L89.159 - Pressure ulcer of sacral region, unspecified stage SNOMED Code(s): 919515571 (13) Pressure ulcer of right foot: Status: Chronic Code(s): L89.899 - Pressure ulcer of other site, unspecified stage SNOMED Code(s): 780145124 (14) Unspecified dementia without behavioral disturbance: Status: Chronic Code(s): F03.90 - Unspecified dementia without behavioral disturbance SNOMED Code(s): 46247329 Plan: Acute Pyelonephritis-Worsening of Chronic Obstructive & Reflux Uropathy w/ CKD and chronic Barnes Cath POA; Barnes cath changed 04/09/2019; Con't Vancomycin and Cefepime IV w/ renal dosing per pharmacy. Preliminary Urine C&S Noting E.Coli per Lab w/ Heavy Growth Gram Neg Rods sensitive to Ceftriaxone; treat fever w/ Tylenol sparingly; IVF sparingly for hx CHF, unspecified type; I&O; Daily weights; continue home meds; VS q 4hrs; Blood cultures preliminary notes 2 of 2 bottles Positive. Repeated Lactic Acid w/ normal value 0.90; Observe patient and call CLIENT CARE SPECIALIST Hospitalist for any concerns w/ frail condition he could change very quickly--Full Code status cont'd.; monitor labs. Hypokalemia--worsening w/ Acute on Chronic after large BM yesterday post Fleets enema for large stool per radiology results; patient refused Kaon 40meq crushed this AM; will supplement w/ NS w/ 20meq @ 100ml/hr.; monitor patient and labs. Unspecified Atrial Flutter-unchanged; telemetry; con't home meds; monitor VS. Chronic use of Anticoagulants--Con't Xarelto. Hyperlipidemia--continune home meds. Hypertension--stable; continue home meds; monitor VS and labs. Muscle Weakness, Cerebral Palsy w/ Contractures and Functional Quadriplegia --Turn patient Q1 hr.; Heel protectors/knee protectors, and careful, gentle care w/ turning and positioning patient; cont home meds as needed; low air loss mattress; PT to evalute and see patient . Multiple chronic pressure Ulcers--R foot and Sacral areas--Wound care w/ Santyl to be continued as at SNF; wound culture all wounds pending & will treat if indicated per wound culture results. Prevention of further wounds by frequent turning as ordered; skin assessment BID and prn.
[2019-05-09] MEDS: MAXIPIME 2 GM/50 ML D5W 2 GM/50 ML BAG IV SCH ×2 (08:55→20:28)
[2019-05-09] MEDS: MULTIVITAMIN TABLET PO SCH (08:59)
[2019-05-09] MEDS: LOPRESSOR PO SCH ×2 (08:59→20:28)
[2019-05-09] MEDS: COLACE PO SCH (08:59)
[2019-05-09] MEDS: VITAMIN D PO SCH (08:59)
[2019-05-09] MEDS: NEURONTIN PO SCH ×3 (08:59→20:27)
[2019-05-09] MEDS: CORDARONE PO SCH (08:59)
[2019-05-09] MEDS: SENNA PO SCH ×2 (08:59→20:27)
[2019-05-09] MEDS: VITAMIN C PO SCH (08:59)
[2019-05-09] MEDS: ZESTRIL PO SCH (08:59)
[2019-05-09] MEDS: XARELTO PO SCH (09:00)
[2019-05-09] MEDS: VENLAFAXINE 37.5 MG PO SCH ×3 (09:03→20:27)
[2019-05-09] MEDS: SODIUM CHLORIDE 0.9%-KCL 20 MEQ 1,000 ML IV SCH (09:04)
[2019-05-09] MEDS: SANTYL TP SCH ×6 (10:45→20:39)
[2019-05-09] MEDS: VANCOMYCIN 1 GM in SODIUM CHLORIDE 250 ML IV SCH ×2 (11:11→22:01)
[2019-05-09] MEDS: K-DUR PO SCH (18:11)
[2019-05-09] MEDS: LIPITOR PO SCH (18:11)
[2019-05-09] MEDS: FLOMAX PO SCH (20:27)
[2019-05-10] MEDS: SODIUM CHLORIDE 0.9%-KCL 20 MEQ 1,000 ML IV SCH ×3 (00:09→21:11)
[2019-05-10] MEDS: DUONEB NEB SCH ×4 (04:54→22:24)
[2019-05-10 08:26] LABS: HEMATOCRIT 29.2 % (42.0-52.0)
[2019-05-10] MEDS: XARELTO PO SCH (09:40)
[2019-05-10] MEDS: MULTIVITAMIN TABLET PO SCH (09:41)
[2019-05-10] MEDS: COLACE PO SCH (09:41)
[2019-05-10] MEDS: ROCEPHIN 2 GM/50 ML D5W 2 GM/50 ML BAG IV SCH (09:41)
[2019-05-10] MEDS: K-DUR PO SCH ×2 (09:41→16:34)
[2019-05-10] MEDS: SENNA PO SCH ×2 (09:41→20:34)
[2019-05-10] MEDS: NEURONTIN PO SCH ×3 (09:41→20:34)
[2019-05-10] MEDS: LOPRESSOR PO SCH ×2 (09:41→20:34)
[2019-05-10] MEDS: VITAMIN C PO SCH (09:42)
[2019-05-10] MEDS: ZESTRIL PO SCH (09:42)
[2019-05-10] MEDS: VITAMIN D PO SCH (09:42)
[2019-05-10] MEDS: CORDARONE PO SCH (09:42)
[2019-05-10] MEDS: VENLAFAXINE 37.5 MG PO SCH ×3 (09:43→20:34)
[2019-05-10] MEDS: SANTYL TP SCH ×6 (09:47→21:08)
--- NOTE | 2019-05-10 10:38 | PCM.PROG ---
Date Seen by Provider: 05/10/19 Time Seen by Provider: 08:22 Subjective: Patient states he slept well last night. Has been afebrile. Denies headache, CP, SOB, cough, wheezing, palpitations, swelling, abdominal pain, N/V, or catheter complaints. Is total care w/ turning and positioning w/ heel protectors, pillows between contractured lower extremities, and Q 1 hr positioning and skin care attendance due to high susceptibility of pressure sores. Lower sacral, R hallux, and Right mid-lateral outer dorsal pressure sore dressings intact w/o notable drainage. Santyl wound care as per SNF routine continued BID per nursing staff. Nurse notes some difficulty with chewing and swallowing foods at breakfast---patient adamantly denies any problems and refused ground or chopped foods. Will continue to observe w/ admission swallow test passed w/ continuance of SNF diet w/ nectar thickening fluids. Patient refused early AM labs and was notified by PUBLISHER ASSISTANT hospitalist; PUBLISHER ASSISTANT talked w/ patient and explained lowered H/H w/ hypokalemia; need to measure labs to see if K+ replacement and other treatment was effective and to be sure K+ and H/H not getting dangerously low. Patient then agreed w/letting lab draw labs w/ PUBLISHER ASSISTANT assisting and holding L arm during draw; patient cooperated and labs obtained w/o any difficulty. Objective: Vitals: T=98.2 F, P=50, R=16, RT=991/65, SPO2=97 HEENT: Eyes-no redness, swelling or d/c. Nasal mucosa pink and moist. Oral mucosa pink and dry; no lesions. Neck: Supple; NT; No lymphadenopathy Lungs: Few scattered coarse breath sounds R lung plata; Breath sounds diminished. No crackles, or wheezes. No cough on exam. No retractions. Respirations easy and regular. RA O2 sat 97%. CVS: RRR; No murmur or gallops. PPP 2+/4+ and =. No edema. No cyanosis; NBB Abdomen: soft, NT, no rebound tenderness or guarding, no organomegaly or masses. [place]/SO present. No signs of diarrhea presently. Extremities: Contracture of all extremities w/ limited movement LUE. No edema. No muscular tenderness or erythema. Chronic bedbound status needing assistance w/ all ADL's. Neurological: Alert and oriented X3. Cooperative and pleasant. Speech low volume and difficult to understand at times. Skin: Dry & intact. No rashes noted. Dressing dry and intact to sacral area and R hallux and R outer foot pad areas. Lab/Tests/Diagnostic Imaging: Laboratory Results WBC 6.35 K/ul (4.2-10.2) 05/10/19 08:20 RBC 3.19 10^6/ul (4.70-6.10) L 05/10/19 08:20 Hgb 9.5 g/dl (14.0-18.0) L 05/10/19 08:20 Hct 29.2 % (42.0-52.0) L 05/10/19 08:20 MCV 91.5 fl (80.0-94.0) 05/10/19 08:20 MCH 29.8 pg (27.0-31.0) 05/10/19 08:20 MCHC 32.5 (31.8-35.4) 05/10/19 08:20 RDW Coeff of Carlita 15.1 % (11.6-14.8) H 05/10/19 08:20 Plt Count 80 10^3/uL (140-440) L 05/10/19 08:20 Immature Gran % (Auto) 0.3 % (0.0-5.0) 05/10/19 08:20 Neut % (Auto) 79.3 % (42.2-75.2) H 05/10/19 08:20 Lymph % (Auto) 11.5 (10.0-50.0) 05/10/19 08:20 [place] % (Auto) 6.6 (0-10) 05/10/19 08:20 Eos % (Auto) 2.0 % (0.0-7.0) 05/10/19 08:20 Baso % (Auto) 0.3 % (0.0-3.0) 05/10/19 08:20 Immature Gran # (Auto) 0.0 (0.0-1.0) 05/10/19 08:20 Neut # (Auto) 5.0 K/ul (2.0-6.9) 05/10/19 08:20 Lymph # (Auto) 0.7 K/uL (0.60-3.4) 05/10/19 08:20 [place] # (Auto) 0.4 K/uL (0.4-2.0) 05/10/19 08:20 Eos # (Auto) 0.1 K/ul (0.0-0.7) 05/10/19 08:20 Baso # (Auto) 0.0 K/uL (0-0.2) 05/10/19 08:20 Sodium 140.4 mmol/L (134.5-145) 05/10/19 08:20 Potassium 3.99 mmol/L (3.5-5.1) 05/10/19 08:20 Chloride 111.8 mmol/L (98-107) H 05/10/19 08:20 Carbon Dioxide 24.8 mmol/L (22-30.0) 05/10/19 08:20 Anion Gap 7.79 05/10/19 08:20 BUN 13.0 mg/dL (9-20) 05/10/19 08:20 Creatinine 0.91 mg/dL (0.60-1.10) 05/10/19 08:20 Estimated GFR (MDRD) 82.00 mL/min 05/10/19 08:20 BUN/Creatinine Ratio 14.28 05/10/19 08:20 Glucose 94.5 mg/dL (74-106) 05/10/19 08:20 Lactic Acid 0.90 mmol/L (0.7-2.1) 05/09/19 07:30 Calcium 8.05 mg/dL (8.4-10.2) L 05/10/19 08:20 Magnesium 1.89 mg/dL (1.6-2.3) 05/10/19 08:20 Total Bilirubin 0.84 mg/dL (0.2-1.3) 05/10/19 08:20 AST 34.5 U/L (17-59) 05/10/19 08:20 ALT 27.2 U/L (0-50) 05/10/19 08:20 Alkaline Phosphatase 68.1 U/L (56-119) 05/10/19 08:20 Total Protein 5.79 g/dL (6.3-8.2) L 05/10/19 08:20 Albumin 2.67 g/dL (3.5-5.0) L 05/10/19 08:20 Globulin 3.12 05/10/19 08:20 Albumin/Globulin Ratio 0.85 05/10/19 08:20 Urine Color Michelle (YELLOW) 05/07/19 18:15 Urine Clarity Cloudy (CLEAR) 05/07/19 18:15 Urine pH 7.5 (5-9) 05/07/19 18:15 Ur Specific [place] 1.015 (1.005-1.030) 05/07/19 18:15 Urine Protein 2+ (NEGATIVE) H 05/07/19 18:15 Urine Glucose (UA) Negative (NEGATIVE) 05/07/19 18:15 Urine Ketones Negative (NEGATIVE) 05/07/19 18:15 Urine Blood 3+ (NEGATIVE) H 05/07/19 18:15 Urine Nitrite Negative (NEGATIVE) 05/07/19 18:15 Urine Bilirubin Negative (NEGATIVE) 05/07/19 18:15 Urine Urobilinogen 2.0 (0.2) H 05/07/19 18:15 Ur Leukocyte Esterase 3+ (NEGATIVE) H 05/07/19 18:15 Urine Microscopic RBC Tntc (0-2) 05/07/19 18:15 Urine Microscopic WBC Tntc (0-2) 05/07/19 18:15 Ur Squamous Epith Cells Not present (0-5) 05/07/19 18:15 Urine Bacteria 3+ (NOT PRESENT) 05/07/19 18:15 Vancomycin Trough 22.760 ug/mL (10.00-20.00) H* 05/10/19 08:20 Influ A Molecular Assay Negative by naat (NEGATIVE) 05/07/19 18:20 Influ B Molecular Assay Negative by naat (NEGATIVE) 05/07/19 18:20 05/07/2019 CT ABD/Pelvis wo renal stone protocol Impression: 1. No urinary or bowel obstruction. 2. Redemonstrated bilateral nonobstructive renal calculi. 3. Nonspecific right greater than left mild perinephric fat stranding. Infection should be excluded. 4. Multiple bladder calculi. 5. Barnes catheter in place. 6. Moderate/large colorectal stool volume. 7. Suspect left low buttock decubitus ulcer. 05/07/2019 CXR 1V IMPRESSION: No active cardiopulmonary disease. 05/07/2019 Wound C&S Sacrum lesion Final report: Heavy Growth Gram Neg. Rods; Moderate Growth Gram Neg Rods; Positive E.Coli & Proteus Mirabilis w/ sensitivity to Ceftriaxone. 05/07/2019 Wound C&S R Hallux lesion Final report: Moderate Normal Yi 05/07/2019 Urine C&S Final report: Heavy Growth Gram Neg. Rods --- Positive E. Coli; Sensitive to Ceftriaxone. 05/07/2019 Blood C&S #1 Final report: positive E.Coli; sensitive to Ceftriaxone 05/07/2019 MRSA screen Nares Final Report--negative. (1) Pyelonephritis: Status: Acute Code(s): N12 - Tubulo-interstitial nephritis, not specified as acute or chronic SNOMED Code(s): 52041640 (2) Obstructive and reflux uropathy, unspecified: Status: Chronic Code(s): N13.9 - Obstructive and reflux uropathy, unspecified SNOMED Code(s): 79490993 (3) Chronic kidney disease, unspecified: Status: Chronic Code(s): N18.9 - Chronic kidney disease, unspecified SNOMED Code(s): 795752623 (4) Hypokalemia: Status: Chronic Code(s): E87.6 - Hypokalemia SNOMED Code(s): 79550704 (5) Unspecified atrial flutter: Status: Chronic Code(s): I48.92 - Unspecified atrial flutter SNOMED Code(s): 9672010 (6) manager intermediate (current) use of anticoagulants: Status: Chronic Code(s): Z79.01 - MCC (current) use of anticoagulants SNOMED Code(s): 189553630 (7) Hyperlipidemia, unspecified: Status: Chronic Code(s): E78.5 - Hyperlipidemia, unspecified SNOMED Code(s): 09848170 (8) Essential (primary) hypertension: Status: Chronic Code(s): I10 - Essential (primary) hypertension SNOMED Code(s): 28252812 (9) Muscle weakness (generalized): Status: Chronic Code(s): M62.81 - Muscle weakness (generalized) SNOMED Code(s): 14626815 (10) Cerebral palsy, unspecified: Status: Chronic Code(s): G80.9 - Cerebral palsy, unspecified SNOMED Code(s): 156924316 (11) Functional quadriplegia: Status: Acute Code(s): R53.2 - Functional quadriplegia SNOMED Code(s): 374730037849065 (12) Pressure ulcer of sacral region, unspecified stage: Status: Acute Code(s): L89.159 - Pressure ulcer of sacral region, unspecified stage SNOMED Code(s): 918395986 (13) Pressure ulcer of right foot: Status: Chronic Code(s): L89.899 - Pressure ulcer of other site, unspecified stage SNOMED Code(s): 642145394 (14) Unspecified dementia without behavioral disturbance: Status: Chronic Code(s): F03.90 - Unspecified dementia without behavioral disturbance SNOMED Code(s): 32700490 Plan: Acute Pyelonephritis--w/Chronic Obstructive & Reflux Uropathy w/ CKD and chronic Barnes Cath POA--mild improvement. Barnes cath changed 04/09/2019; Cultures back w/ urine indicating E. Coli & Proteus Mirabilis & blood E.coli + both sensitive to Cefetriaxone (same for other positive wound cultures) Vancomycin trough 22.760H this AM, but w/ no indication for Vanc will d/c at this time w/ Cefepime; Change IV ATB therapy to Ceftriaxone 2Gm IV Q 24 hrs. per consult w/ Isaac Wong; Plan for 2-3 days IV Ceftriaxone w/ possible return to SNF if patient improving and no significant events.; Treat fever w/ tylenol sparingly (patient has been afebrile post ER admission); IVF sparingly for hx CHF, unspecified type; I&O; Daily weights; continue home meds; VS q 4hrs; Observe patient and call PUBLISHER ASSISTANT Hospitalist for any concerns w/ frail condition he could change very quickly--Full Code status cont'd.; monitor labs. Hypokalemia--improved to normal K+ 3.99 from 2.96 yesterday; treated w/ IV NS w/ 20meq KCL 83ml/hr when patient refused PO K-Dur. Later during the AM, patient took K-Dur 40meq as ordered earlier and then Kaon 20meq was started PM for continued BID dosing. IVF w/ K+ are continued. Seems to be a connection to low K+ and his large BM 05/08/2019; monitor patient and labs. Will continue IV fluids w/ K+ and monitor labs in AM. Home dose K-Dur was 10meq BID--may need to be increased to 20meq BID on d/c. Continue to monitor stools, emesis if any, and labs. Unspecified Atrial Flutter-unchanged; telemetry; con't home meds; monitor VS. Chronic use of Anticoagulants--Con't Xarelto.; no signs of DVT noted on exam. Monitor. Hyperlipidemia--continune home meds. Hypertension--stable; continue home meds; monitor VS and labs. Muscle Weakness, Cerebral Palsy w/ Contractures and Functional Quadriplegia --Turn patient Q1 hr.; Heel protectors/knee protectors, and careful, gentle care w/ turning and positioning patient; cont home meds as needed; low air loss mattress; PT to evaluate and see patient . Multiple chronic pressure Ulcers--R foot and Sacral areas--complication w/ noted R foot and buttocks cultures positive for E. Coli & Proteus Mirabilis but sensitive to Ceftriaxone--Ceftriaxone IV continued as noted for Acute Pyelonephritis and wound infections; Contact isolation; Wound care w/ Santyl to be continued as at SNF; Prevention of further wounds by frequent turning as ordered; skin assessment BID and prn.
[2019-05-10] MEDS: MAXIPIME 2 GM/50 ML D5W 2 GM/50 ML BAG IV SCH (11:16)
[2019-05-10] MEDS: VANCOMYCIN 1 GM in SODIUM CHLORIDE 250 ML IV SCH (11:16)
[2019-05-10] MEDS: LIPITOR PO SCH (16:34)
[2019-05-10] MEDS: FLOMAX PO SCH (20:33)
[2019-05-11] MEDS: DUONEB NEB SCH ×4 (04:36→22:36)
[2019-05-11] MEDS: SODIUM CHLORIDE 0.9%-KCL 20 MEQ 1,000 ML IV SCH ×3 (07:17→10:16)
--- NOTE | 2019-05-11 07:54 | PCM.PROG ---
Date Seen by Provider: 05/11/19 Time Seen by Provider: 07:53 Subjective: Patient states he slept well last night. Remains afebrile w/ VS steady. Denies any pain, headache, CP, SOB, cough, wheezing, palpitations, swelling, abdominal pain, N/V, or catheter complaints. Last BM 05/08/2019 post fleets enema. Chronic total care w/ turning and positioning w/ heel protectors and padding/pillows between contractured lower extremities Q 1 hr and skin care attendance due to high susceptibility of pressure sores. Lower sacral, R hallux, and Right mid-lateral outer dorsal pressure sore dressings intact w/o notable drainage. Santyl wound care as per SNF routine continued BID per nursing staff. Patient denies any swallowing issues and is adamant about no chopped or ground foods. Will continue to observe w/ admission swallow test passed w/ continuance of SNF diet w/ nectar thickening fluids. Patient refusing AM labs. Objective: Vitals: T=98.6 F, P=65, R=16, WJ=478/73, SPO2=97 HEENT: Eyes-bright w/ sparkle; no redness, swelling or d/c. Nasal mucosa pink and moist. Oral mucosa pink and slightly dry; no lesions. Neck: Supple; NT; No lymphadenopathy Lungs: Rare scattered coarse breath sounds R mid and upper lung plata; Breath s ounds diminished. No crackles, or wheezes. No cough on exam. No retractions. Respirations easy and regular. RA O2 sat 97%. CVS: RRR; No murmur or gallops. PPP 2+/4+ and =. No edema. No cyanosis; NBB Abdomen: soft, NT, no rebound tenderness or guarding, no organomegaly or masses. [place]/SO present. No signs of diarrhea presently. : Barnes cath intact w/ straw-colored urine clearing w/ small amount of sediment. Significant difference from initial admission dark brown sediment, cloudy urine. Extremities: Contracture of all extremities w/ limited movement LUE. No edema. No muscular tenderness or erythema. Chronic bedbound status needing assistance w/ all ADL's. Neurological: Alert and oriented X3. Cooperative and pleasant. Speech low volume and difficult to understand at times. Skin: Dry & intact. No rashes noted. Dressing dry and intact to sacral area and R hallux and R outer foot pad areas. Lab/Tests/Diagnostic Imaging: No testing today as patient refused AM CBC & Chem profile. (1) Pyelonephritis: Status: Acute Code(s): N12 - Tubulo-interstitial nephritis, not specified as acute or chronic SNOMED Code(s): 79250469 (2) Obstructive and reflux uropathy, unspecified: Status: Chronic Code(s): N13.9 - Obstructive and reflux uropathy, unspecified SNOMED Code(s): 05546455 (3) Chronic kidney disease, unspecified: Status: Chronic Code(s): N18.9 - Chronic kidney disease, unspecified SNOMED Code(s): 122526712 (4) Hypokalemia: Status: Chronic Code(s): E87.6 - Hypokalemia SNOMED Code(s): 90409750 (5) Unspecified atrial flutter: Status: Chronic Code(s): I48.92 - Unspecified atrial flutter SNOMED Code(s): 1467852 (6) terminal gauger (current) use of anticoagulants: Status: Chronic Code(s): Z79.01 - terminal gauger (current) use of anticoagulants SNOMED Code(s): 993887555 (7) Hyperlipidemia, unspecified: Status: Chronic Code(s): E78.5 - Hyperlipidemia, unspecified SNOMED Code(s): 10172782 (8) Essential (primary) hypertension: Status: Chronic Code(s): I10 - Essential (primary) hypertension SNOMED Code(s): 11300004 (9) Muscle weakness (generalized): Status: Chronic Code(s): M62.81 - Muscle weakness (generalized) SNOMED Code(s): 60033020 (10) Cerebral palsy, unspecified: Status: Chronic Code(s): G80.9 - Cerebral palsy, unspecified SNOMED Code(s): 296788876 (11) Functional quadriplegia: Status: Acute Code(s): R53.2 - Functional quadriplegia SNOMED Code(s): 849309293144950 (12) Pressure ulcer of sacral region, unspecified stage: Status: Acute Code(s): L89.159 - Pressure ulcer of sacral region, unspecified stage SNOMED Code(s): 404822573 (13) Pressure ulcer of right foot: Status: Chronic Code(s): L89.899 - Pressure ulcer of other site, unspecified stage SNOMED Code(s): 469615914 (14) Unspecified dementia without behavioral disturbance: Status: Chronic Code(s): F03.90 - Unspecified dementia without behavioral disturbance SNOMED Code(s): 51187978 Plan: Acute Pyelonephritis--w/Chronic Obstructive & Reflux Uropathy w/ CKD and chronic Barnes Cath POA-Improving;Barnes cath changed 04/09/2019; Urine Culture results=E. Coli & Proteus Mirabilis & blood culture= E.coli + both sensitive to Ceftriaxone (same for other positive wound cultures) Continue Ceftriaxone 2Gm IV Q 24 hrs; Plan for 2-3 days IV Ceftriaxone w/ possible return to SNF if patient improving and no significant events.; Treat fever w/ tylenol sparingly ( patient has been afebrile post ER admission); IVF sparingly for hx CHF, unspecified type; I&O; Daily weights; continue home meds; VS q 4hrs; Observe patient and call SUPERVISOR [employer] Hospitalist for any concerns w/ frail condition he could change very quickly--Full Code status cont'd.; monitor labs--pt. refused labs this AM. Hypokalemia--improved to normal K+ 3.99 yesterday w/ pt. refusing labs this AM; D/C IV w/ 20meq KCL; continue Kaon 20meq PO BID. Unable to monitor thia AM lab as patient refusing; will get lab in AM prior to return to SNF--patient agrees w/ lab draw then. May increase home Kaon 10meq BID to 20meq BID on d/c according to lab results. Continue to monitor stools, emesis if any, and labs. Unspecified Atrial Flutter-unchanged; telemetry; con't home meds; monitor VS. Chronic use of Anticoagulants--Con't Xarelto.; no signs of DVT noted on exam. Monitor. Hyperlipidemia--continue home meds. Hypertension--stable; continue home meds; monitor VS and labs. Muscle Weakness, Cerebral Palsy w/ Contractures and Functional Quadriplegia--C hronic unchanging condition--Turn patient Q1 hr.; Heel protectors/knee protectors, and careful, gentle care w/ turning and positioning patient; cont home meds as needed; low air loss mattress; PT to evaluate and see patient . Multiple chronic pressure Ulcers--R foot and Sacral areas--complication w/ noted R foot and buttocks cultures positive for E. Coli & Proteus Mirabilis but sensitive to Ceftriaxone--Ceftriaxone IV continued as noted for Acute Pyelonephritis and wound infections; Contact isolation; Wound care w/ Santyl to be continued as at SNF; Prevention of further wounds by frequent turning as ordered; skin assessment BID and prn. DVT Prophylaxis--Con't Xarelto home med; SCD's at all times. Unable to ambulate due to CP w/ severe contractures; TEDs difficult w/ R foot pressure wounds, SCD's best tx.
[2019-05-11] MEDS: SANTYL TP SCH ×6 (08:51→20:27)
[2019-05-11] MEDS: VENLAFAXINE 37.5 MG PO SCH ×3 (08:52→20:29)
[2019-05-11] MEDS: SENNA PO SCH ×2 (08:52→20:28)
[2019-05-11] MEDS: NEURONTIN PO SCH ×3 (08:52→20:28)
[2019-05-11] MEDS: ROCEPHIN 2 GM/50 ML D5W 2 GM/50 ML BAG IV SCH (08:52)
[2019-05-11] MEDS: LOPRESSOR PO SCH ×2 (08:52→20:29)
[2019-05-11] MEDS: COLACE PO SCH (08:52)
[2019-05-11] MEDS: VITAMIN D PO SCH (08:52)
[2019-05-11] MEDS: XARELTO PO SCH (08:53)
[2019-05-11] MEDS: VITAMIN C PO SCH (08:53)
[2019-05-11] MEDS: CORDARONE PO SCH (08:53)
[2019-05-11] MEDS: K-DUR PO SCH ×2 (08:53→16:59)
[2019-05-11] MEDS: MULTIVITAMIN TABLET PO SCH (08:53)
[2019-05-11] MEDS: ZESTRIL PO SCH (08:53)
--- NOTE | 2019-05-11 09:18 | PCM.DC ---
Final Diagnosis: Acute Pyelonephritis; Sepsis Acute on Chronic Hypokalemia (1) Pyelonephritis: Status: Acute Code(s): N12 - Tubulo-interstitial nephritis, not specified as acute or chronic SNOMED Code(s): 03452436 (2) Sepsis due to Escherichia coli: Status: Acute Code(s): A41.51 - Sepsis due to Escherichia coli [E. coli] SNOMED Code(s): 910710219 Qualifiers: Sepsis acute organ dysfunction status: unspecified Qualified Code(s): A41.51 - Sepsis due to Escherichia coli [E. coli] (3) Hypokalemia: Status: Acute Code(s): E87.6 - Hypokalemia SNOMED Code(s): 78888656 (4) Chronic constipation: Status: Acute Code(s): K59.00 - Constipation, unspecified SNOMED Code(s): 932698656 (5) Chronic kidney disease, unspecified: Status: Chronic Code(s): N18.9 - Chronic kidney disease, unspecified SNOMED Code(s): 531338564 Qualifiers: Chronic kidney disease stage: unspecified stage Qualified Code(s): N18.9 - Chronic kidney disease, unspecified (6) Obstructive and reflux uropathy, unspecified: Status: Chronic Code(s): N13.9 - Obstructive and reflux uropathy, unspecified SNOMED Code(s): 64778775 (7) Kc catheter present: Status: Chronic Code(s): Z96.0 - Presence of urogenital implants SNOMED Code(s): 463374141 (8) Unspecified atrial flutter: Status: Chronic Code(s): I48.92 - Unspecified atrial flutter SNOMED Code(s): 2159547 Qualifiers: Atrial flutter type: unspecified Qualified Code(s): I48.92 - Unspecif ied atrial flutter (9) jail (current) use of anticoagulants: Status: Chronic Code(s): Z79.01 - bed bug exterminator (current) use of anticoagulants SNOMED Code(s): 794015565 (10) Hyperlipidemia, unspecified: Status: Chronic Code(s): E78.5 - Hyperlipidemia, unspecified SNOMED Code(s): 25954917 Qualifiers: Hyperlipidemia type: unspecified Qualified Code(s): E78.5 - Hyperlipidemia, unspecified (11) Essential (primary) hypertension: Status: Chronic Code(s): I10 - Essential (primary) hypertension SNOMED Code(s): 87527827 (12) Muscle weakness (generalized): Status: Chronic Code(s): M62.81 - Muscle weakness (generalized) SNOMED Code(s): 33232266 (13) Cerebral palsy, unspecified: Status: Chronic Code(s): G80.9 - Cerebral palsy, unspecified SNOMED Code(s): 059357332 Qualifiers: Cerebral palsy type: unspecified type Qualified Code(s): G80.9 - Cerebral palsy, unspecified (14) Functional quadriplegia: Status: Acute Code(s): R53.2 - Functional quadriplegia SNOMED Code(s): 057769563906303 (15) Pressure ulcer of sacral region, unspecified stage: Status: Acute Code(s): L89.159 - Pressure ulcer of sacral region, unspecified stage SNOMED Code(s): 214211599 Qualifiers: Pressure injury stage: unspecified pressure injury stage Qualified Code(s): L89.159 - Pressure ulcer of sacral region, unspecified stage (16) Pressure ulcer of right foot: Status: Chronic Code(s): L89.899 - Pressure ulcer of other site, unspecified stage SNOMED Code(s): 887363349 Qualifiers: Pressure injury stage: unspecified pressure injury stage Qualified Code(s): L89.899 - Pressure ulcer of other site, unspecified stage (17) Unspecified dementia without behavioral disturbance: Status: Chronic Code(s): F03.90 - Unspecified dementia without behavioral disturbance SNOMED Code(s): 53055764 Qualifiers: Dementia type: unspecified type Qualified Code(s): F03.90 - Unspecified dementia without behavioral disturbance Reason for Hospitalization: Acute Pyelonephritis w/ concerns for early sepsis w/ elevated fever, need for IVF replacement in the setting of CKD, Obstructive & reflux uropathy, chronic Kc cath w/ thick sediment and observed signs of significant urinary infection. Needing IV antibiotics for sepsis likely related to pyelonephritis and infection of his pressure wounds. Prognosis at Discharge: Good w/ dependence on SNF setting for management of catheter, pressure sores, and prevention of other sources of infection in his bed bound functional quadriplegic state. Condition at Discharge: Stable; controlled infection at present w/ 7 days of antibiotic injections needed for sepsis & acute pyelonephritis and repeat of urinalysis and urine C&S in 3 weeks to monitor complete clearing of pyelonephritis post ATB tx ( to be done w/ changing Kc cath/insertion of new cath to prevent culture specimen contamination per kc bag or equipment. Medications at Discharge: Ambulatory Orders Medication Instructions Recorded acetaminophen 650 mg PO Q6H PRN 05/07/19 albuterol sulfate 2 puff INHALATION Q6H PRN 05/07/19 amiodarone 200 mg PO DAILY 05/07/19 ascorbic acid (vitamin C) [Vitamin 500 mg PO DAILY 05/07/19 C] atorvastatin 10 mg PO QPM 05/07/19 baclofen 20 mg PO TID PRN 05/07/19 benzonatate [Tessalon Perles] 200 mg PO TID PRN 05/07/19 cholecalciferol (vitamin D3) 1,000 unit PO DAILY 05/07/19 [Vitamin D3] collagenase clostridium histo. 1 applic TOPICAL BID 05/07/19 [Santyl] gabapentin 300 mg PO TID 05/07/19 ipratropium-albuterol 3 ml INHALATION Q4H PRN 05/07/19 lisinopril 5 mg PO DAILY 05/07/19 loperamide 2 mg PO Q6H PRN 05/07/19 magnesium hydroxide [Milk of 30 ml PO BEDTIME PRN 05/07/19 Magnesia] metoprolol tartrate 12.5 mg PO BID 05/07/19 multivitamin [Multiple Vitamins] 1 tab PO DAILY 05/07/19 nitroglycerin 0.4 mg SUBLINGUAL Q5-15M PRN 05/07/19 ondansetron HCl 4 mg PO Q8H PRN 05/07/19 potassium chloride 10 meq PO BID 05/07/19 rivaroxaban [Xarelto] 20 mg PO DAILY 05/07/19 sennosides-docusate sodium 1 tab-cap PO BID 05/07/19 [Senokot-S] tamsulosin 0.4 mg PO BEDTIME 05/07/19 venlafaxine 37.5 mg PO TID 05/07/19 New RX's on discharge--Ceftriaxone 1GM IM Q AM X 7 days in RUOQ buttocks Ceftriaxone 1 GM IM Q AM X 7 days in LUOQ buttocks Total of 2GM daily divided per each gluteus. K-Dur increased to 20mg PO BID #60 NRF RX faxed to [facility] [address] [place] [address], [place]. [address] Lab/Diagnostics: [address] Report : [id number] Signed Patient: ALVARO PHELANAcct:[id number] Record: [id number] : 1950Loc: EDRoom/Bed: Age/Sex: 68 / MADM Status: REG ERDate of Service: 05/07/19 Ordering Physician: BRITNI POMPA MD Procedure(s): CT ABD/PEL WO RENAL STONE PROT Report Number(s): [id number] Accession Number(s): [id number] cc: BRITNI POMPA MD; BRODIE OSHEA MD EXAM: CT Abdomen Pelvis Without IV contrast HISTORY: Sepsis, abdominal pain COMPARISON: 10/15/2017 TECHNIQUE: CT Abdomen Pelvis performed Without intravenous contrast. Coronal and sagital images obtained. FINDINGS: Mild passive and subsegmental atelectasis in the dependent right lung base. Heart is enlarged. Trace pericardial effusion. Spleen is enlarged. The liver, pancreas, adrenals unremarkable. Gallbladder is absent. Redemonstrated bilateral nonobstructive nephrolithiasis which measure up to approximately 0.8 cm in the right mid pole. Nonspecific symmetric mild perinephric fat stranding. No hydronephrosis. There are multiple calculi within the dependent bladder. Kc catheters present within the decompressed bladder. There are a few non dependent foci of intra vesicular air. No bowel obstruction or abnormal bowel wall thickening. Moderate/large colorectal stool volume. Appendix is not definitely visualized. No definite adenopathy. Normal diameter aorta. Moderate atherosclerotic calcifications. No abnormal fluid collection, free fluid or free air. No acute osseous abnormality. Left lower buttock area of soft tissue stranding with possible ulcer. No definite fluid collection. Unchanged sclerotic focus in the right iliac wing. Stable chronic L1 superior plate compression deformity with height loss and anterior wedging. IMPRESSION: 1. No urinary or bowel obstruction. 2. Redemonstrated bilateral nonobstructive renal calculi. 3. Nonspecific right greater than left mild perinephric fat stranding. Infection should be excluded. 4. Multiple bladder calculi. 5. Kc catheter in place. 6. Moderate/large colorectal stool volume. 7. Suspect left low buttock decubitus ulcer. Patient: ALVARO PHELANAcct:[id number] Record: [id number] : 1950Loc: EDRoom/Bed: Age/Sex: 68 / MADM Status: REG ERDate of Service: 05/07/19 Ordering Physician: ANTONIA SALINAS MD Procedure(s): CHEST, 1V AP ONLY Report Number(s): [id number] Accession Number(s): [id number] cc: ANTONIA SALINAS MD; BRODIE OSHEA MD EXAM: One-view chest HISTORY: Fever TECHNIQUE: Single frontal view the chest was obtained. Comparison to 10/15/2017. FINDINGS: Heart is stable size. Lungs are clear. The point vasculature appears normal. IMPRESSION: No active cardiopulmonary disease. Dictated By:SKYLER CARD Signed By:SYKLER CARD Dictated Date/Time: 05/07/191834 Transcribed Date/Time: 05/07/191834 Signed Date/Time: 05/07/19 1840 Education Provided to Patient and Family: Continue Ground meats, chopped hard vegetables, and Soft [place] thickening for liquids Turn and position Q 1 hr w/contracture extremity protectors & boots as prior to admission protecting all elier prominences and current pressure sore areas. Santyl wound changes BID to sacral, R hallux , and R medial outer foot edge cont'd as prior to admission; Wound managment SNF consult cont'd. Change Kc cath 06/02/2019 w/ repeat urinalysis w/ initial catherization as sterile catch w/ urine C&S to evaluation Acute Pylenephritis treatment. Results to Dr. Oshea for further evaluation. Thanks! Patient has adamantly refused AM labs 05/10 & 05/12/2019; needs CMP and CBC in 1 week or sooner problems. Up in chair w/ joceline lift TID meals and prn. Observe for chronic constipation w/ fleets prn. Care returned to PCP Dr. Brodie Oshea. Follow-ups: Per SNF rounds w/ PCP Dr. Nan Oshea. Discharge Disposition: [facility] ([facility]. ) Hospital Course: Alvaro Phelan is a pleasant 68yo male is a [facility] resident w/ functional quadriplegia d/t Cerebral Palsy involving muscle weakness/spasticity, contractures and chronic pressure wounds, Unspecified dementia w/o behavioral disturbance, Atrial flutter w/ LT use of anticoagulants, Obstructive & Reflux Uropathy w/ chronic cath POA, HLD, COPD, CKD, HTN, and other health issues (see PMH) who presented via EMS to [facility] ER 05/07/2019 17:59 after onset waxing and waning mild to moderate fever that day that was treated w/ prn Tylenol. His dx of dementia per SNF record review and weak speech that was garbled at the time and difficult to understand making him a poor historian. Most information w/o family present is gleaned from [place] record review. ER observation of dark brown,cloudy, sediment filled urine per patent Kc cath (POA). Admission labs notes: Lactic Acid 1.14; CBC w/ WBC 10.72 H and eunormal Chronic DX anemia RBC 4.11, H/H 12.3/38.1; Chem Profile CO2 31.8H, BUN 23.6H, Creat 0.96N, Glucose 135.5 H, Ca+ 8.20L, and Albumin 3.08L; Urinalysis abn- Protein 2+, Blood 3+, Urobilinogen 2.0, Leuko Estrase 3+, WBC TNTC, and Bacteria 3+; urine C&S pending. CXR findings were negative for cardiopulmonary issues. CT of abd/pelvis w/o contrast noted: No urinary or bowel obstruction; redemonstrated bilateral nonobstructive renal calculi; nonspecific R>L mild perinephric fat stranding w/ infection should be excluded; multiple bladder calculi; Kc catheter in place; moderate/large colorectal stool volume; and visualization of patient's chronic left low buttock decubitus ulcer. Patient presented to ER w/ 102.8 F fever BP 160/62 P 101 R 22 O2Sat 94% on 2L/NC. Blood cultures X1 drawn in ER and wound cultures were also taken of all his wounds after patient admission to Inpatient Unit. Patient was admitted as inpatient for Pyelonephritis w/ early Sepsis complicated w/ Obstructive & reflux Urology requiring chronic cath POA and CKD. Patient was initially treated w/ Vancomycin and Cefepime w/ Pharmacy monitoring due to his CKD. His Functional quadraplegia w/ chronic pressure wounds, chronic Hypokalemia, and multiple health issues added to his high risk/care status. Days 1-2 Lactic Acid 0.90. Patient was given gently IVF replacement w/ hx of heart failure and noted clear CXR. His kc output increased and new Kc cath was placed 05/08/2019. His appetite was improved. There were no treatment changes awaiting blood, urine, wounds X3, and Nares cultures. He remained afebrile and more responsive and interactive w/ staff. BP for generally 115-120's/51-60's, P decreased from initial 110 to 48-64, Resp. stable 18, and patient was maintained on RA @ 94-98% O2 sat. Patient was given Fleets enema w/ large soft unformed stool return. Patient had coarse breath sounds R lung plata posteriorly on admission w/ Duo-Nebs Q6hrs KWESI w/ inproved/clearing coarse breath sounds on Day 1. Wound care continued w/ Q1hr positioning per nursing staff w/ skin observation. Days 3-4 Patient again refusing labs w/ DOLL WIG MAKER notified; DOLL WIG MAKER talked w/patient and verbalizing need to monitor K+ and H/H w/ changes noted post IVF hydration as expected. 05/08 WBC 8.51, H/H 9.6/29.6 and essentially unchanged 05/09. 05/08 K+ 2.96 (post large BM) w/ tx K-Dur 40meq PO that AM (after several attempts to get patient to take the pill) w/ IV NS w/ 20meq @ 83ml/hr and then started K-Dur 20meq PO BID evening 05/08; then 05/09 K+ level improved to 3.99. Other significant labs 05/08 BUN improved to (23.6) 13.0; Creatinine 0.94-0.91, Calcium sl. low w/o symptoms 8.20 to 8.05, Albumin sl. low 3.08 to 2.67. Patient remains stable and urinary output improving w/ some sediment but color changing to light straw colored; Kc patent w/o leakage/spasms noted. Patient increasingly alert and interactive each day. Refusal for labs and medications is in many ways the only control this diane whiteside has of his environment and it is not voiced rudely. 05/10/2019 Results of culture returned w/ R hallux wound noting normal ml; blood, urine, and buttock wound cutlures noting E. Coli w/ proteus mirabilis also w/ buttock speciment w/ all responding well to Ceftriaxone. ATB therapy was then changed to Ceftriaxone 2GM Q 24 hrs w/ Vancomycin and Cefepime d/c'd. Day 5/Discharge Day. Patient improved and stable; remains aftebrile w/ stable VS ; Kc Cath patent and draining light yellow straw colored urine w/ scant sediment much improved from admission. Ceftriaxone 2gm IV Q 24hrs w/ 3rd dose given this AM--to continue 7 days of IM Rocephen X 7 more days. Patient ainsley abrams refused labs & 05/12/2019; needs CMP & CBC in 1 week or sooner problems; Will need recheck of UA w/ C&S Thursday 06/01 to be obtained w/ new Kc placement for optimum specimen testing. Pt. weight 05/08/2019 115lbs 8.356 oz. Pressure ulcers unchanged. Wound status: pressure sore R outer dorsal foot 2.4X1cm denuded w/ serous to serosang drainage wound edge rim redness resolving w/ some granulation; R hallux denuded pressure sore 6X6cm w/serous to serosang drainage w/ wound edge less red ; Lower sacral pressure sore w/ 1cm depth 2X1cm w/ lt. cream drainage Plan: Acute Pyelonephritis--w/Chronic Obstructive & Reflux Uropathy w/ CKD and chronic Kc Cath POA-Improving;Kc cath changed 04/09/2019; Urine Culture results=E. Coli & Proteus Mirabilis & blood culture= E.coli + both sensitive to Ceftriaxone (same for other positive wound cultures) Continue Ceftriaxone 2Gm IM Q 24 hrs (1MG IM in each UOQ buttocks) X 7 days at SNF; continue home meds; VS as per SNF routine & prn; Repeat CMP & CBC in 1week. Full Code status cont'd. Hypokalemia--improved to normal K+ 3.99 this AM; Increased home med to K-Dur 20meq PO BID. Recheck CMP in 1 wk or sooner problems; Monitor K+ levels per PCP orders. Chronic Constipation--Improved, but needs continued meds and monitoring BM's; fleets prn. Unspecified Atrial Flutter-unchanged; telemetry; con't home meds; monitor VS. Chronic use of Anticoagulants--Con't Xarelto.; no signs of DVT noted on exam. Monitor. Hyperlipidemia--continue home meds. Hypertension--stable; continue home meds; monitor VS and Labs per PCP. Muscle Weakness, Cerebral Palsy w/ Contractures and Functional Quadriplegia --Chronic unchanging condition--Turn patient Q1 hr.; Heel protectors/knee protectors, and careful, gentle care w/ turning and positioning patient; cont home meds as needed; low air loss mattress; up in w/c w/ air loss protection pad via Joceline lift. Multiple chronic pressure Ulcers--R foot and Sacral areas--complication w/ noted R foot and buttocks cultures positive for E. Coli & Proteus Mirabilis but sensitive to Ceftriaxone. Needs Ceftriaxone IM 1 Gm each buttocks for total of 2GM X7 days at SNF continued as noted for Acute Pyelonephritis and wound infections; Contact isolation; Wound care w/ Santyl to be continued as at SNF; Prevention of further wounds by frequent turning as ordered; skin assessment BID and prn. Discharge Disposition: D/C Time 70 minutes for record review & documentation, Nursing huddle, case management d/c arrangements,communication w/ SNF and Out of State Pharmacy ,and patient education; Transferred back to [facility] w/ Dr. Nan Oshea PCP.
[2019-05-11] MEDS ORDERED: MIRALAX PO PRN (14:00)
[2019-05-11] MEDS: LIPITOR PO SCH (16:59)
[2019-05-11] MEDS: FLOMAX PO SCH (20:29)
[2019-05-12] MEDS: DUONEB NEB SCH ×2 (04:36→11:06)
[2019-05-12 06:05] VITALS: BP 121/62; TEMP 98.2
[2019-05-12] MEDS: K-DUR PO SCH (08:37)
[2019-05-12] MEDS: VITAMIN C PO SCH (08:38)
[2019-05-12] MEDS: COLACE PO SCH (08:38)
[2019-05-12] MEDS: MULTIVITAMIN TABLET PO SCH (08:38)
[2019-05-12] MEDS: VITAMIN D PO SCH (08:39)
[2019-05-12] MEDS: LOPRESSOR PO SCH (08:39)
[2019-05-12] MEDS: NEURONTIN PO SCH (08:40)
[2019-05-12] MEDS: ZESTRIL PO SCH (08:40)
[2019-05-12] MEDS: VENLAFAXINE 37.5 MG PO SCH (08:41)
[2019-05-12] MEDS: XARELTO PO SCH (08:41)
[2019-05-12] MEDS: CORDARONE PO SCH (08:41)
[2019-05-12] MEDS: ROCEPHIN 2 GM/50 ML D5W 2 GM/50 ML BAG IV SCH (08:41)
[2019-05-12] MEDS: SENNA PO SCH (10:19)
[2019-05-12] MEDS: SANTYL TP SCH ×3 (10:59)
--- NOTE | 2019-05-12 12:00 | PCM.DC ---
Final Diagnosis: Acute Pyelonephritis; Sepsis Acute on Chronic Hypokalemia (1) Pyelonephritis: Status: Acute Code(s): N12 - Tubulo-interstitial nephritis, not specified as acute or chronic SNOMED Code(s): 64284321 (2) Sepsis due to Escherichia coli: Status: Acute Code(s): A41.51 - Sepsis due to Escherichia coli [E. coli] SNOMED Code(s): 446563840 Qualifiers: Sepsis acute organ dysfunction status: unspecified Qualified Code(s): A41.51 - Sepsis due to Escherichia coli [E. coli] (3) Hypokalemia: Status: Acute Code(s): E87.6 - Hypokalemia SNOMED Code(s): 83031517 (4) Chronic constipation: Status: Acute Code(s): K59.00 - Constipation, unspecified SNOMED Code(s): 040862783 (5) Chronic kidney disease, unspecified: Status: Chronic Code(s): N18.9 - Chronic kidney disease, unspecified SNOMED Code(s): 506634820 Qualifiers: Chronic kidney disease stage: unspecified stage Qualified Code(s): N18.9 - Chronic kidney disease, unspecified (6) Obstructive and reflux uropathy, unspecified: Status: Chronic Code(s): N13.9 - Obstructive and reflux uropathy, unspecified SNOMED Code(s): 56654578 (7) Kc catheter present: Status: Chronic Code(s): Z96.0 - Presence of urogenital implants SNOMED Code(s): 266071504 (8) Unspecified atrial flutter: Status: Chronic Code(s): I48.92 - Unspecified atrial flutter SNOMED Code(s): 2148027 Qualifiers: Atrial flutter type: unspecified Qualified Code(s): I48.92 - Unspecified atrial flutter (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: Status: Chronic Code(s): Z79.01 - longterm (current) use of anticoagulants SNOMED Code(s): 072852110 (10) Hyperlipidemia, unspecified: Status: Chronic Code(s): E78.5 - Hyperlipidemia, unspecified SNOMED Code(s): 48821317 Qualifiers: Hyperlipidemia type: unspecified Qualified Code(s): E78.5 - Hyperlipidemia, unspecified (11) Essential (primary) hypertension: Status: Chronic Code(s): I10 - Essential (primary) hypertension SNOMED Code(s): 06090219 (12) Muscle weakness (generalized): Status: Chronic Code(s): M62.81 - Muscle weakness (generalized) SNOMED Code(s): 10470736 (13) Cerebral palsy, unspecified: Status: Chronic Code(s): G80.9 - Cerebral palsy, unspecified SNOMED Code(s): 773255691 Qualifiers: Cerebral palsy type: unspecified type Qualified Code(s): G80.9 - Cerebral palsy, unspecified (14) Functional quadriplegia: Status: Acute Code(s): R53.2 - Functional quadriplegia SNOMED Code(s): 180830209172695 (15) Pressure ulcer of sacral region, unspecified stage: Status: Acute Code(s): L89.159 - Pressure ulcer of sacral region, unspecified stage SNOMED Code(s): 178161925 Qualifiers: Pressure injury stage: unspecified pressure injury stage Qualified Code(s): L89.159 - Pressure ulcer of sacral region, unspecified stage (16) Pressure ulcer of right foot: Status: Chronic Code(s): L89.899 - Pressure ulcer of other site, unspecified stage SNOMED Code(s): 446694384 Qualifiers: Pressure injury stage: unspecified pressure injury stage Qualified Code(s): L89.899 - Pressure ulcer of other site, unspecified stage (17) Unspecified dementia without behavioral disturbance: Status: Chronic Code(s): F03.90 - Unspecified dementia without behavioral disturbance SNOMED Code(s): 01221928 Qualifiers: Dementia type: unspecified type Qualified Code(s): F03.90 - Unspecified dementia without behavioral disturbance Reason for Hospitalization: Acute Pyelonephritis w/ concerns for early sepsis w/ elevated fever, need for IVF replacement in the setting of CKD, Obstructive & reflux uropathy, chronic Kc cath w/ thick sediment and observed signs of significant urinary infection. Needing IV antibiotics for sepsis likely related to pyelonephritis and infection of his pressure wounds. Prognosis at Discharge: Good w/ dependence on SNF setting for management of catheter, pressure sores, and prevention of other sources of infection in his bed bound functional quadriplegic state. Condition at Discharge: Stable; controlled infection at present w/ 7 days of antibiotic injections needed for sepsis & acute pyelonephritis and repeat of urinalysis and urine C&S in 3 weeks to monitor complete clearing of pyelonephritis post ATB tx ( to be done w/ changing Kc cath/insertion of new cath to prevent culture specimen contamination per kc bag or equipment. Medications at Discharge: Ambulatory Orders Medication Instructions Recorded Santyl 1 applic TOPICAL BID 05/07/19 Xarelto 20 mg PO DAILY 05/07/19 acetaminophen 650 mg PO Q6H PRN 05/07/19 albuterol sulfate 2 puff INHALATION Q6H PRN 05/07/19 amiodarone 200 mg PO DAILY 05/07/19 ascorbic acid (vitamin C) [Vitamin 500 mg PO DAILY 05/07/19 C] atorvastatin 10 mg PO QPM 05/07/19 baclofen 20 mg PO TID PRN 05/07/19 benzonatate [Tessalon Perles] 200 mg PO TID PRN 05/07/19 cholecalciferol (vitamin D3) 1,000 unit PO DAILY 05/07/19 [Vitamin D3] gabapentin 300 mg PO TID 05/07/19 ipratropium-albuterol 3 ml INHALATION Q4H PRN 05/07/19 lisinopril 5 mg PO DAILY 05/07/19 loperamide 2 mg PO Q6H PRN 05/07/19 magnesium hydroxide [Milk of 30 ml PO BEDTIME PRN 05/07/19 Magnesia] metoprolol tartrate 12.5 mg PO BID 05/07/19 multivitamin [Multiple Vitamins] 1 tab PO DAILY 05/07/19 nitroglycerin 0.4 mg SUBLINGUAL Q5-15M PRN 05/07/19 ondansetron HCl 4 mg PO Q8H PRN 05/07/19 sennosides-docusate sodium 1 tab-cap PO BID 05/07/19 [Senokot-S] tamsulosin 0.4 mg PO BEDTIME 05/07/19 venlafaxine 37.5 mg PO TID 05/07/19 ceftriaxone 1 gm IM DAILY #7 each MDD 1 GM in 05/12/19 Left UOQ Gluteus ceftriaxone 1 gm IM DAILY #7 each MDD 1GM 05/12/19 Right UOQ Gluteus potassium chloride 20 meq PO BID #60 tab 05/12/19 New RX's on discharge--Ceftriaxone 1GM IM Q AM X 7 days in RUOQ buttocks Ceftriaxone 1 GM IM Q AM X 7 days in LUOQ buttocks Total of 2GM daily divided per each gluteus. K-Dur increased to 20mg PO BID #60 NRF RX faxed to [facility] [address] [place] [phone] Lab/Diagnostics: Laboratory Results WBC 6.35 K/ul (4.2-10.2) 05/10/19 08:20 RBC 3.19 10^6/ul (4.70-6.10) L 05/10/19 08:20 Hgb 9.5 g/dl (14.0-18.0) L 05/10/19 08:20 Hct 29.2 % (42.0-52.0) L 05/10/19 08:20 MCV 91.5 fl (80.0-94.0) 05/10/19 08:20 MCH 29.8 pg (27.0-31.0) 05/10/19 08:20 MCHC 32.5 (31.8-35.4) 05/10/19 08:20 RDW Coeff of Carlita 15.1 % (11.6-14.8) H 05/10/19 08:20 Plt Count 80 10^3/uL (140-440) L 05/10/19 08:20 Immature Gran % (Auto) 0.3 % (0.0-5.0) 05/10/19 08:20 Neut % (Auto) 79.3 % (42.2-75.2) H 05/10/19 08:20 Lymph % (Auto) 11.5 (10.0-50.0) 05/10/19 08:20 [place] % (Auto) 6.6 (0-10) 05/10/19 08:20 Eos % (Auto) 2.0 % (0.0-7.0) 05/10/19 08:20 Baso % (Auto) 0.3 % (0.0-3.0) 05/10/19 08:20 Immature Gran # (Auto) 0.0 (0.0-1.0) 05/10/19 08:20 Neut # (Auto) 5.0 K/ul (2.0-6.9) 05/10/19 08:20 Lymph # (Auto) 0.7 K/uL (0.60-3.4) 05/10/19 08:20 [place] # (Auto) 0.4 K/uL (0.4-2.0) 05/10/19 08:20 Eos # (Auto) 0.1 K/ul (0.0-0.7) 05/10/19 08:20 Baso # (Auto) 0.0 K/uL (0-0.2) 05/10/19 08:20 Sodium 140.4 mmol/L (134.5-145) 05/10/19 08:20 Potassium 3.99 mmol/L (3.5-5.1) 05/10/19 08:20 Chloride 111.8 mmol/L (98-107) H 05/10/19 08:20 Carbon Dioxide 24.8 mmol/L (22-30.0) 05/10/19 08:20 Anion Gap 7.79 05/10/19 08:20 BUN 13.0 mg/dL (9-20) 05/10/19 08:20 Creatinine 0.91 mg/dL (0.60-1.10) 05/10/19 08:20 Estimated GFR (MDRD) 82.00 mL/min 05/10/19 08:20 BUN/Creatinine Ratio 14.28 05/10/19 08:20 Glucose 94.5 mg/dL (74-106) 05/10/19 08:20 Lactic Acid 0.90 mmol/L (0.7-2.1) 05/09/19 07:30 Calcium 8.05 mg/dL (8.4-10.2) L 05/10/19 08:20 Magnesium 1.89 mg/dL (1.6-2.3) 05/10/19 08:20 Total Bilirubin 0.84 mg/dL (0.2-1.3) 05/10/19 08:20 AST 34.5 U/L (17-59) 05/10/19 08:20 ALT 27.2 U/L (0-50) 05/10/19 08:20 Alkaline Phosphatase 68.1 U/L (56-119) 05/10/19 08:20 Total Protein 5.79 g/dL (6.3-8.2) L 05/10/19 08:20 Albumin 2.67 g/dL (3.5-5.0) L 05/10/19 08:20 Globulin 3.12 05/10/19 08:20 Albumin/Globulin Ratio 0.85 05/10/19 08:20 Urine Color Michelle (YELLOW) 05/07/19 18:15 Urine Clarity Cloudy (CLEAR) 05/07/19 18:15 Urine pH 7.5 (5-9) 05/07/19 18:15 Ur Specific [place] 1.015 (1.005-1.030) 05/07/19 18:15 Urine Protein 2+ (NEGATIVE) H 05/07/19 18:15 Urine Glucose (UA) Negative (NEGATIVE) 05/07/19 18:15 Urine Ketones Negative (NEGATIVE) 05/07/19 18:15 Urine Blood 3+ (NEGATIVE) H 05/07/19 18:15 Urine Nitrite Negative (NEGATIVE) 05/07/19 18:15 Urine Bilirubin Negative (NEGATIVE) 05/07/19 18:15 Urine Urobilinogen 2.0 (0.2) H 05/07/19 18:15 Ur Leukocyte Esterase 3+ (NEGATIVE) H 05/07/19 18:15 Urine Microscopic RBC Tntc (0-2) 05/07/19 18:15 Urine Microscopic WBC Tntc (0-2) 05/07/19 18:15 Ur Squamous Epith Cells Not present (0-5) 05/07/19 18:15 Urine Bacteria 3+ (NOT PRESENT) 05/07/19 18:15 Vancomycin Trough 22.760 ug/mL (10.00-20.00) H* 05/10/19 08:20 Influ A Molecular Assay Negative by naat (NEGATIVE) 05/07/19 18:20 Influ B Molecular Assay Negative by naat (NEGATIVE) 05/07/19 18:20 [place] [address] Report : [id number] Signed Patient: ALVARO PHELANAcct:[id number] Record: [id number] : 1950Loc: EDRoom/Bed: Age/Sex: 68 / MADM Status: REG ERDate of Service: 05/07/19 Ordering Physician: BRITNI POMPA MD Procedure(s): CT ABD/PEL WO RENAL STONE PROT Report Number(s): [id number] Accession Number(s): [id number] cc: BRITNI POMPA MD; BRODIE OSHEA MD EXAM: CT Abdomen Pelvis Without IV contrast HISTORY: Sepsis, abdominal pain COMPARISON: 10/15/2017 TECHNIQUE: CT Abdomen Pelvis performed Without intravenous contrast. Coronal and sagital images obtained. FINDINGS: Mild passive and subsegmental atelectasis in the dependent right lung base. Heart is enlarged. Trace pericardial effusion. Spleen is enlarged. The liver, pancreas, adrenals unremarkable. Gallbladder is absent. Redemonstrated bilateral nonobstructive nephrolithiasis which measure up to approximately 0.8 cm in the right mid pole. Nonspecific symmetric mild perinephric fat stranding. No hydronephrosis. There are multiple calculi within the dependent bladder. Kc catheters present within the decompressed bladder. There are a few non dependent foci of intra vesicular air. No bowel obstruction or abnormal bowel wall thickening. Moderate/large colorectal stool volume. Appendix is not definitely visualized. No definite adenopathy. Normal diameter aorta. Moderate atherosclerotic calcifications. No abnormal fluid collection, free fluid or free air. No acute osseous abnormality. Left lower buttock area of soft tissue stranding with possible ulcer. No definite fluid collection. Unchanged sclerotic focus in the right iliac wing. Stable chronic L1 superior plate compression deformity with height loss and anterior wedging. IMPRESSION: 1. No urinary or bowel obstruction. 2. Redemonstrated bilateral nonobstructive renal calculi. 3. Nonspecific right greater than left mild perinephric fat stranding. Infection should be excluded. 4. Multiple bladder calculi. 5. Kc catheter in place. 6. Moderate/large colorectal stool volume. 7. Suspect left low buttock decubitus ulcer. Patient: Raya PHELANt:[id number] Record: [id number] : 1950Loc: EDRoom/Bed: Age/Sex: 68 / MADM Status: REG ERDate of Service: 05/07/19 Ordering Physician: ANTONIA SALINAS MD Procedure(s): CHEST, 1V AP ONLY Report Number(s): [id number] Accession Number(s): [id number] cc: ANTONIA SALINAS MD; BRODIE OSHEA MD EXAM: One-view chest HISTORY: Fever TECHNIQUE: Single frontal view the chest was obtained. Comparison to 10/15/2017. FINDINGS: Heart is stable size. Lungs are clear. The point vasculature appears normal. IMPRESSION: No active cardiopulmonary disease. Dictated By:SKYLER CARD Signed By:SKYLER CARD Dictated Date/Time: 05/07/191834 Transcribed Date/Time: 05/07/191834 Signed Date/Time: 05/07/191839 Education Provided to Patient and Family: Continue Ground meats, chopped hard vegetables, and Soft [place] thickening for liquids Turn and position Q 1 hr w/contracture extremity protectors & boots as prior to admission protecting all elier prominences and current pressure sore areas. Santyl wound changes BID to sacral, R hallux , and R medial outer foot edge cont'd as prior to admission; Wound managment SNF consult cont'd. Change Kc cath 06/02/2019 w/ repeat urinalysis w/ initial catherization as sterile catch w/ urine C&S to evaluation Acute Pylenephritis treatment. Results to Dr. Oshea for further evaluation. Thanks! Patient has adamantly refused AM labs 05/10 & 05/12/2019; needs CMP and CBC in 1 week or sooner problems. Up in chair w/ joceline lift TID meals and prn. Observe for chronic constipation w/ fleets prn. Care returned to PCP Dr. Brodie Oshea. Follow-ups: Per SNF rounds w/ PCP Dr. Nan Oshea. Discharge Disposition: [facility] ([facility]. ) Follow-ups: SNF rounds per Dr. Brodie Oshea discretion. Discharge Disposition: [facility] ([facility]--his previous half-way.) Hospital Course: Day1-2 Alvaro Phelan is a pleasant 68yo male, a [facility] resident w/ functional quadriplegia d/t Cerebral Palsy involving muscle weakness/spasticity, contractures and chronic pressure wounds, Unspecified dementia w/o behavioral disturbance, Atrial flutter w/ LT use of anticoagulants, Obstructive & Reflux Uropathy w/ chronic cath POA, HLD, COPD, CKD, HTN, and other health issues (see PMH) who presented via EMS to [facility] ER 05/07/2019 17:59 after onset waxing and waning mild to moderate fever that day that was treated w/ prn Tylenol. His dx of dementia per SNF record review and weak speech that was garbled at the time and difficult to understand making him a poor historian. Most information w/o family present is gleaned from NH record review. ER observation of dark brown,cloudy, sediment filled urine per patent Kc cath (POA). Admission labs notes: Lactic Acid 1.14; CBC w/ WBC 10.72 H and eunormal Chronic DX anemia RBC 4.11, H/H 12.3/38.1; Chem Profile CO2 31.8H, BUN 23.6H, Creat 0.96N, Glucose 135.5 H, Ca+ 8.20L, and Albumin 3.08L; Urinalysis abn- Protein 2+, Blood 3+, Urobilinogen 2.0, Leuko Estrase 3+, WBC TNTC, and Bacteria 3+; urine C&S pending. CXR findings were negative for cardiopulmonary issues. CT of abd/pelvis w/o contrast noted: No urinary or bowel obstruction; redemonstrated bilateral nonobstructive renal calculi; nonspecific R>L mild perinephric fat stranding w/ infection should be excluded; multiple bladder calculi; Kc catheter in place; moderate/large colorectal stool volume; and visualization of patient's chronic left low buttock decubitus ulcer. Patient presented to ER w/ 102.8 F fever BP 160/62 P 101 R 22 O2Sat 94% on 2L/NC. Blood cultures X1 drawn in ER and wound cultures were also taken of all his wounds after patient admission to Inpatient Unit. Patient was admitted as inpatient for Pyelonephritis w/ early Sepsis complicated w/ Obstructive & reflux Urology requiring chronic cath POA and CKD. Patient was initially treated w/ Vancomycin and Cefepime w/ Pharmacy monitoring due to his CKD. His Functional quadraplegia w/ chronic pressure wounds, chronic Hypokalemia, and multiple health issues added to his high risk/care status. Lactic Acid 0.90. Patient was given gently IVF replacement w/ hx of heart failure and noted clear CXR. His kc output increased and new Kc cath was placed 05/08/2019. His appetite was improved. There were no treatment changes awaiting blood, urine, wounds X3, and Nares cultures. He remained afebrile and more responsive and interactive w/ staff. BP for generally 115-120's/51-60's, P decreased from initial 110 to 48-64, Resp. stable 18, and patient was maintained on RA @ 94-98% O2 sat. Patient was given Fleets enema w/ large soft unformed stool return. Patient had coarse breath sounds R lung plata posteriorly on admission w/ Duo-Nebs Q6hrs KWESI w/ inproved/clearing coarse breath sounds on Day 1. Wound care continued w/ Q1hr positioning per nursing staff w/ skin observation. Days 3-4 Patient again refusing labs w/ WIG MAKER notified; WIG MAKER talked w/patient and verbalizing need to monitor K+ and H/H w/ changes noted post IVF hydration as expected. 05/08 WBC 8.51, H/H 9.6/29.6 and essentially unchanged 05/09. 05/08 K+ 2.96 (post large BM) w/ tx K-Dur 40meq PO that AM (after several attempts to get patient to take the pill) w/ IV NS w/ 20meq @ 83ml/hr and then started K-Dur 20meq PO BID evening 05/08; then 05/09 K+ level improved to 3.99. Other significant labs 05/08 BUN improved to (23.6) 13.0; Creatinine 0.94-0.91, Calcium sl. low w/o symptoms 8.20 to 8.05, Albumin sl. low 3.08 to 2.67. Patient remains stable and urinary output improving w/ some sediment but color changing to light straw colored; Kc patent w/o leakage/spasms noted. Patient increasingly alert and interactive each day. Refusal for labs and medications is in many ways the only control this nice stevo has of his environment and it is not voiced rudely. 05/10/2019 Results of culture returned w/ R hallux wound noting normal ml; blood, urine, and buttock wound cutlures noting E. Coli w/ proteus mirabilis also w/ buttock speciment w/ all responding well to Ceftriaxone. ATB therapy was then changed to Ceftriaxone 2GM Q 24 hrs w/ Vancomycin and Cefepime d/c'd. Day 5/Discharge Day. Patient improved and stable; remains aftebrile w/ stable VS ; Kc Cath patent and draining light yellow straw colored urine w/ scant sediment much improved from admission. Ceftriaxone 2gm IV Q 24hrs w/ 3rd dose given this AM--to continue 7 days of IM Rocephen X 7 more days. Patient adamantly refused labs & 05/12/2019; needs CMP & CBC in 1 week or sooner problems; Will need recheck of UA w/ C&S Thursday 06/01 to be obtained w/ new Kc placement for optimum specimen testing. Pt. weight 05/08/2019 115lbs 8.356 oz. Pressure ulcers unchanged. Wound status: pressure sore R outer dorsal foot 2.4X1cm denuded w/ serous to serosang drainage wound edge rim redness resolving w/ some granulation; R hallux denuded pressure sore 6X6cm w/serous to serosang drainage w/ wound edge less red ; Lower sacral pressure sore w/ 1cm depth 2X1cm w/ lt. cream drainage Plan: Acute Pyelonephritis--w/Chronic Obstructive & Reflux Uropathy w/ CKD and chronic Kc Cath POA-Improving;Kc cath changed 04/09/2019; Urine Culture results=E. Coli & Proteus Mirabilis & blood culture= E.coli + both sensitive to Ceftriaxone (same for other positive wound cultures) Continue Ceftriaxone 2Gm IM Q 24 hrs (1MG IM in each UOQ buttocks) X 7 days at SNF; continue home meds; VS as per SNF routine & prn; Repeat CMP & CBC in 1week. Full Code status cont'd. Sepsis d/t E. Coli--responding well to Ceftriaxone; see Acute Pyelonephritis plan. Hypokalemia--improved to normal K+ 3.99 this AM; Increased home med to K-Dur 20meq PO BID. Recheck CMP in 1 wk or sooner problems; Monitor K+ levels per PCP orders. Chronic Constipation--Improved, but needs continued meds and monitoring BM's; fleets prn. Unspecified Atrial Flutter-unchanged; telemetry; con't home meds; monitor VS. Chronic use of Anticoagulants--Con't Xarelto.; no signs of DVT noted on exam. Monitor. Hyperlipidemia--continue home meds. Hypertension--stable; continue home meds; monitor VS and Labs per PCP. Muscle Weakness, Cerebral Palsy w/ Contractures and Functional Quadriplegia --Chronic unchanging condition--Turn patient Q1 hr.; Heel protectors/knee protectors, and careful, gentle care w/ turning and positioning patient; cont home meds as needed; low air loss mattress; up in w/c w/ air loss protection pad via Joceline lift. Multiple chronic pressure Ulcers--R foot and Sacral areas--complication w/ noted R foot and buttocks cultures positive for E. Coli & Proteus Mirabilis but sensitive to Ceftriaxone. Needs Ceftriaxone IM 1 Gm each buttocks for total of 2GM X7 days at SNF continued as noted for Acute Pyelonephritis and wound infections; Contact isolation; Wound care w/ Santyl to be continued as at SNF per Wound Care Team; Prevention of further wounds by frequent turning as ordered; skin assessment BID and prn. Discharge Disposition: D/C Time 70 minutes for record review & documentation, Nursing huddle, case management d/c arrangements,communication w/ SNF and Out of State Pharmacy ,and patient education; Transferred back to [facility] milla w/ Dr. Nan Oshea PCP resuming care.
== END 2019-05-12 13:20 | DRG 864 ==
LOC: EDBD → ED 17:59 → MERGE 20:03 → MEDSURG B 20:03
PROVIDERS: ADMIT Nurse Practitioner Family; ATTEND Nurse Practitioner Family
DX: B96.4 Proteus (mirabilis) (morganii) as the cause of diseases classified elsewhere; L89.899 Pressure ulcer of other site, unspecified stage; J44.9 Chronic obstructive pulmonary disease, unspecified; Z74.01 Bed confinement status; N18.9 Chronic kidney disease, unspecified; E78.5 Hyperlipidemia, unspecified; R53.1 Weakness; R50.9 Fever, unspecified; I10 Essential (primary) hypertension; F03.90 Unspecified dementia, unspecified severity, without behavioral disturbance, psychotic disturbance, mood disturbance, and anxiety; I48.91 Unspecified atrial fibrillation; R47.9 Unspecified speech disturbances; Z86.73 Personal history of transient ischemic attack (TIA), and cerebral infarction without residual deficits; N13.9 Obstructive and reflux uropathy, unspecified; D64.9 Anemia, unspecified; I48.92 Unspecified atrial flutter; G80.9 Cerebral palsy, unspecified; M62.81 Muscle weakness (generalized); K59.00 Constipation, unspecified; Z79.899 Other long term (current) drug therapy; Z96.0 Presence of urogenital implants; L89.159 Pressure ulcer of sacral region, unspecified stage; A41.51 Sepsis due to Escherichia coli [E. coli]; Z79.01 Long term (current) use of anticoagulants; I50.9 Heart failure, unspecified; R53.2 Functional quadriplegia; N12 Tubulo-interstitial nephritis, not specified as acute or chronic; E87.6 Hypokalemia